=== PATIENT | female | born 1970 | race Caucasian/White ===

== ENCOUNTER → 2020-08-27 10:44 | Outpatient (CLI) | payer OTHER, SELFPAY ==
--- NOTE | 2020-08-27 10:46 | DI.RAD.S_ITS ---
PROCEDURE: XR FOOT LT MIN 3V INDICATIONS: Persistent and progressive lateral left foot pain TECHNIQUE: 3 views of the foot were acquired. COMPARISON: None. FINDINGS: Bones: No fractures or dislocations. No suspicious bony lesions. Soft tissues: No tibiotalar joint effusion. Achilles tendon appears normal. IMPRESSION: No osseous lesion. If symptoms and/or clinical suspicion for pathology persists, further assessment with advanced imaging (e.g. CT, MRI or bone scan) should be considered. Dictated by: Zeinab Medellin MD, PhD on 08/27/2020 at 15:10 Approved by: Zeinab Medellin MD, PhD on 08/27/2020 at 15:11
[2020-08-27 11:27] LABS: Add Manual Diff / Slide Review NO; Basophils Absolute Auto 0 /uL (0-100); Basophils Percent Auto 0.2 % (0-2); Eosinophils Absolute Auto 100 /uL (0-450); Eosinophils Percent Auto 0.9 % (2-4); Hematocrit 38.4 % (36-46); Hemoglobin 12.9 g/dL (12.0-16.0); Lymphocytes Absolute Auto 1100 /uL (1100-4500); Lymphocytes Percent Auto 16.3 % (25-40); Mean Corpuscular HGB Conc 33.6 % (30-36); Mean Corpuscular Hemoglobin 32.7 PG (26-34); Mean Corpuscular Volume 97.3 fL (80-100); Monocytes Absolute Auto 600 /uL (0-900); Monocytes Percent Auto 9.6 % (3-14); Neutrophils Absolute Auto 4800 /uL (1500-7000); Platelet Count 330 X10^3/uL (150-400); Red Blood Cell Count 3.94 X10^6/uL (4.0-5.2); Red Cell Distribution Width 13.5 % (11.6-14.8); White Blood Cell Count 6.6 X10^3/uL (4.5-11.0)
[2020-08-27 12:18] LABS: Alanine Aminotransferase 37 IU/L (<35); Albumin 4.7 g/dL (3.5-5.0); Albumin Globulin Ratio 1.6 (1.0-2.8); Alkaline Phosphatase 49 U/L (38-126); Aspartate Aminotransferase 38 IU/L (14-36); BUN Creatinine Ratio 20.8 (6-22); Bilirubin Total 0.7 mg/dL (0.2-1.3); Blood Urea Nitrogen 15 mg/dL (7-17); Calcium 9.8 mg/dL (8.4-10.2); Carbon Dioxide 30 mmol/L (22-32); Chloride 103 mmol/L (98-107); Cholesterol 287 mg/dL (140-199); Estimated Glomerular Filt Rate > 60.0 mL/min (>60); Glucose 92 mg/dL (70-100); HDL Cholesterol 89 mg/dL (40-60); HEMOLYSIS < 15 (0-50); LDL Cholesterol Calculated 186 mg/dL (<100); Potassium 3.9 mmol/L (3.4-5.1); Sodium 139 mmol/L (137-145); Total Protein 7.7 g/dL (6.3-8.2); Triglycerides 60 mg/dL (35-150)
[2020-08-27 12:49] LABS: TSH w/ Reflex to FT4 0.99 uIU/mL (0.47-4.68)
== END ==
PROVIDERS: PCP Family Medicine; Referring Provider Family Medicine; Visit Provider Family Medicine
DX: Z00.00 Encounter for general adult medical examination without abnormal findings (principal); M77.42 Metatarsalgia, left foot
CPT/HCPCS: 36415; 73630; 80053; 80061; 84443; 85025

== ENCOUNTER → 2020-10-13 09:37 | Outpatient (CLI) | payer OTHER, SELFPAY ==
[2020-10-13 10:22] LABS: COVID19 -Nasal RAPID Negative (Negative)
== END ==
PROVIDERS: PCP Family Medicine; Visit Provider Surgery
DX: Z01.812 Encounter for preprocedural laboratory examination (principal); Z20.822 Contact with and (suspected) exposure to COVID-19
CPT/HCPCS: 87635; C9803

== ENCOUNTER 2020-10-14 09:04 | Day surgery (SDC) | payer OTHER, SELFPAY ==
[2020-10-14 09:35] VITALS: BP 105/75; PULSE 79; RESP 18; TEMP 36.4; O2SAT 98; BMI 22.7
[2020-10-14] MEDS: LACTATED RINGERS 1,000 ML 100 ML IV (09:54)
--- NOTE | 2020-10-14 10:15 | PM.HP.1 ---
History of Present Illness History of Present Illness Date Patient Seen: 10/14/20 Time Patient Seen: 10:25 Chief complaint: SCREENING COLONOSCOPY Narrative: No family history for colon cancer. Son has Crohn's diagnosed at age 2. she has not symptoms. Previous colonoscopy in her 30's to rule out inflammatory bowel dz Patient History Medical History Chicken pox (~1975) Family history of breast cancer Foot pain (~2017) Gastric ulcer (~1988) Hemorrhoid (~1997) Hip dysplasia (~1979) History of melanoma (~2018) History of menopause (~2012) Hyperlipidemia Irregular menstrual cycle (~1984) Metatarsalgia, left foot Migraines (~1984) Mononucleosis (~1979) Osteoarthritis (~2009) Ovarian cyst Ovarian torsion (~1995) Pneumonia (~1980) Preventative health care Vision disorder Surgical History Anesthesia History of section (~1996) History of hip surgery (~2009) History of oophorectomy History of right knee surgery (~2019) History of tonsillectomy and adenoidectomy (~1977) Status post rotator cuff repair (~2016) Family & Social History Family History Father Alzheimer's disease History of bipolar disorder CLL (chronic lymphocytic leukemia) History of heart disease Hyperlipidemia Hypertension Mental health problem History of heart attack Mother Osteoarthritis Breast cancer History of heart disease Hyperlipidemia Grandfather Alcoholic Grandmother Stroke Dementia Grandfather Cirrhosis Alcoholic Grandmother Hypertension Stroke Family/Other Mental health problem Social History: household members spouse,family Tobacco & Substance use: Smoking Status Never smoker alcohol intake current alcohol intake frequency 3 or more drinks per day Substance Use Type does not use Meds Home Medications and Allergies Home Medications Medication Instructions Recorded Confirmed Type doxylamine succinate 12.5 mg PO BEDTIME 10/14/20 10/14/20 History magnesium citrate 125 mg PO BEDTIME 10/14/20 10/14/20 History melatonin 5 mg PO BEDTIME PRN 10/14/20 10/14/20 History Allergies Allergy/AdvReac Type Severity Reaction Status Date / Time No Known Drug Allergies Allergy Verified 10/11/20 13:07 Exam Vital Signs (past 8 hours): - 10/14/20 09:35 Temperature 97.6 F Pulse Rate 79 Respiratory Rate 18 Blood Pressure 105/75 Pulse Oximetry 98 Oxygen Delivery Method Room Air Const General: cooperative and healthy appearing Nutritional Appearance: average body habitus Orientation: alert and oriented x3 HENMT Head: normal to inspection Ears: hearing grossly normal bilaterally Nose: external nose normal Eyes Sclera: sclerae normal Neck Neck: trachea midline and supple Chest Chest: normal inspection of the chest Cardio Rate: regular rate Rhythm: regular rhythm GI Inspection: normal to inspection Palpation: soft Skin General: no rashes or lesions noted Hair: normal Nails: normal Neuro General: patient alert and patient oriented x3 Extrem General: normal to inspection and full ROM Psych Appearance: grossly normal Thought Content: normal Judgment: judgment good Assessment & Plan Assessment & Plan narrative: colon cancer screening using colonoscopy and moderate sedation COVID-19 COVID-19 status: Negative
--- NOTE | 2020-10-14 10:50 | PM.OP.ENDO ---
Operative Date/Time/Diagnoses Date of procedure: 10/14/20 Time of procedure: 10:50 Pre-op diagnosis: screening for colonoscopy Post-op diagnosis: same Procedure & Clinicians Study performed: colonoscopy with moderate sedatoin Same procedure as scheduled: Yes Indications: colon cancer screening Surgeon: Shelly Hilton Procedure Notes SCOAP/Timeout: done Procedure in detail: Preop diagnosis: Colon cancer screening Postop diagnosis: Same Operative procedure: Colonoscopy with moderate sedation Surgeon: Sunitha Hilton MD Anesthetic: Fentanyl and Versed, see nursing notes for dosing Findings: Normal colonoscopy. No polyps, no diverticulitis Procedure: Patient placed in the lateral position. Rectal exam performed showing normal tone no masses. She does have a large anal skin tag. Scope inserted into the rectum and advanced to the ileocecal valve with minimal difficulty. Insufflation and extraction of the scope and the above findings. Retroflex was included in the rectal exam. Impression: Normal colonoscopy, no polyps, no diverticulosis. Plan: Repeat colonoscopy in 10 years unless change in clinical condition or family history. Scope withdrawal time: 6 min Sedation minutes: 18 Specimen(s): none sent Complications: none Impression: normal colon. no polyps, no diverticula Post-procedure Recommendations: Colonscopy in 10 years and Continue medication(s) Plan for aftercare: home Follow up: as needed Disposition: PACU
[2020-10-14] MEDS: fentaNYL 250 MCG/5 ML INJ IV (10:52)
[2020-10-14] MEDS: MIDAZOLAM 5 MG/5 ML VIAL IV (10:52)
[2020-10-14 10:55] VITALS: BP 90/60; PULSE 74; RESP 94; TEMP 36.4; O2SAT 12
[2020-10-14 11:00] VITALS: BP 94/70; PULSE 67; RESP 12; O2SAT 95
[2020-10-14 11:05] VITALS: BP 95/69; PULSE 63; RESP 12; O2SAT 99
[2020-10-14 11:10] VITALS: BP 94/69; PULSE 69; RESP 12; TEMP 36.3; O2SAT 99
[2020-10-14 11:30] VITALS: BP 97/68; PULSE 82; RESP 14; TEMP 36.1; O2SAT 99
== END 2020-10-14 11:35 | disposition home or self-care (01) ==
PROVIDERS: PCP Family Medicine; Referring Provider Family Medicine; Visit Provider Surgery
PROC: 0DJD8ZZ Inspection of Lower Intestinal Tract, Via Natural or Artificial Opening Endoscopic (ICD-10-PCS; CPT 45378; principal; 2020-10-14 10:15)
DX: Z12.11 Encounter for screening for malignant neoplasm of colon (principal)
CPT/HCPCS: 45378; 99152; J2250; J3010

== ENCOUNTER → 2021-02-03 07:19 | Outpatient (CLI) | payer OTHER, SELFPAY ==
[2021-02-03 08:48] LABS: Alanine Aminotransferase 14 IU/L (<35); Albumin 4.4 g/dL (3.5-5.0); Albumin Globulin Ratio 1.8 (1.0-2.8); Alkaline Phosphatase 49 U/L (38-126); Aspartate Aminotransferase 30 IU/L (14-36); BUN Creatinine Ratio 23.2 (6-22); Bilirubin Total 0.4 mg/dL (0.2-1.3); Blood Urea Nitrogen 16 mg/dL (7-17); Calcium 9.2 mg/dL (8.4-10.2); Carbon Dioxide 26 mmol/L (22-32); Chloride 107 mmol/L (98-107); Cholesterol 214 mg/dL (140-199); Estimated Glomerular Filt Rate > 60.0 mL/min (>60); Globulin 2.5 g/dL (1.7-4.1); Glucose 84 mg/dL (70-100); HDL Cholesterol 72 mg/dL (40-60); HEMOLYSIS < 15 (0-50); LDL Cholesterol Calculated 129 mg/dL (<100); Potassium 4.3 mmol/L (3.4-5.1); Sodium 141 mmol/L (137-145); Total Protein 6.9 g/dL (6.3-8.2); Triglycerides 63 mg/dL (35-150)
== END ==
PROVIDERS: PCP Family Medicine; Referring Provider Family Medicine; Visit Provider Family Medicine
DX: E78.01 Familial hypercholesterolemia (principal)
CPT/HCPCS: 36415; 80053; 80061

== ENCOUNTER → 2021-04-07 13:58 | Outpatient (CLI) | payer OTHER, SELFPAY ==
[2021-04-07 14:49] LABS: COVID19 -Nasal RAPID Negative (Negative)
== END ==
PROVIDERS: PCP Family Medicine; Visit Provider Physician Assistant
DX: Z20.822 Contact with and (suspected) exposure to COVID-19 (principal)
CPT/HCPCS: 87635

== ENCOUNTER → 2021-04-07 14:51 | Outpatient (CLI) | payer OTHER, SELFPAY ==
--- NOTE | 2021-04-07 14:52 | DI.RAD.S_ITS ---
PROCEDURE: XR HAND RT MIN 3V INDICATIONS: recent pinky and ring finger injury TECHNIQUE: 3 views of the hand(s) acquired. COMPARISON: None. FINDINGS: Bones: No fractures or dislocations. Carpal bones are normally aligned. No suspicious bony lesions. Soft tissues: No suspicious soft tissue calcifications. IMPRESSION: No fracture or dislocation. If clinical symptoms persist or clinical suspicion for pathology is high, a repeat examination in 7-10 days is suggested for further evaluation. Dictated by: Ekaterina Morgan M.D. on 04/07/2021 at 16:08 Approved by: Ekaterina Morgan M.D. on 04/07/2021 at 16:10
== END ==
PROVIDERS: PCP Family Medicine; Referring Provider Physician Assistant; Visit Provider Physician Assistant
DX: S69.91XA Unspecified injury of right wrist, hand and finger(s), initial encounter (principal); Z20.822 Contact with and (suspected) exposure to COVID-19; X58.XXXA Exposure to other specified factors, initial encounter
CPT/HCPCS: 73130; 87635

== ENCOUNTER → 2022-01-12 08:19 | Outpatient (CLI) | payer BC, SELFPAY ==
[2022-01-12 11:40] LABS: Appearance Urine UA SL CLOUDY; Bilirubin Urine UA NEGATIVE (NEGATIVE); Color Urine UA YELLOW; Glucose Urine UA NEGATIVE (Negative); Ketones Urine UA NEGATIVE (NEGATIVE); Leukocyte Esterase Urine UA 1+ (NEGATIVE); Nitrite Urine UA POSITIVE (Negative); Occult Blood Urine UA 3+ (Negative); Protein Urine UA 1+ (Negative); Urobilinogen Urine UA 0.2 E.U./dL (0.2)
[2022-01-12 12:09] LABS: Bacteria Urine Many (>30); Culture Indicated Urine Specimen Cultured; Mucus Urine 1+ (Negative); RBC Urine 1-5/HPF (0-5/HPF); Squamous Epithelial Cell Urine 0-1 /HPF (0-5/HPF); WBC Urine 30-100/HPF (0-5/HPF)
== END ==
PROVIDERS: PCP Family Medicine; Referring Provider Family Medicine; Visit Provider Family Medicine
DX: R39.15 Urgency of urination (principal); R82.90 Unspecified abnormal findings in urine
CPT/HCPCS: 81001; 87077; 87086; 87186

== ENCOUNTER → 2022-03-13 11:06 | Outpatient (CLI) | payer BC, SELFPAY ==
--- NOTE | 2022-03-13 | DI.MG.S_ITS ---
BILATERAL DIGITAL SCREENING MAMMOGRAM 3D/2D WITH CAD WITH AUGMENTATION: 03/13/2022 CLINICAL: Patient presents for routine screening. S/P bilateral augmentation. Family history of breast cancer. Comparison is made to exam dated: 04/07/2019 mammogram - Outside facility. There are scattered areas of fibroglandular density in both breasts (category b / 25%-50% glandular tissue). Current study was also evaluated with a Computer Aided Detection (CAD) system. Bilateral breast implants are stable and intact. No significant masses, calcifications, or other findings are seen in either breast. There has been no significant interval change. IMPRESSION: NEGATIVE There is no mammographic evidence of malignancy. A 1 year screening mammogram is recommended. Based on the Tyrer Cuzick model (a risk assessment model) the patient's lifetime risk is 6.7% and her 10 year risk is 1.7%. According to the ACR, ACS, and NCCN guidelines, an annual breast MRI exam along with mammogram is recommended if the patient's lifetime risk is 20% or greater. This exam was interpreted at Station ID: [id number]. NOTE: For mammograms, a report in lay terms will be sent to the patient. Approximately 15% of breast malignancies will not be visualized mammographically. In the management of a palpable breast mass, a negative mammogram must not discourage biopsy of a clinically suspicious lesion. Electronically Signed By: Megha peñaloza/renita:03/13/2022 14:35:45 letter sent: Normal Exam ACR BI-RADS Category 1: Negative 3341F
== END ==
PROVIDERS: PCP Family Medicine; Referring Provider Family Medicine; Visit Provider Family Medicine
DX: Z12.31 Encounter for screening mammogram for malignant neoplasm of breast (principal); Z80.3 Family history of malignant neoplasm of breast; Z98.82 Breast implant status
CPT/HCPCS: 77063; 77067

== ENCOUNTER → 2022-10-18 07:56 | Outpatient (CLI) | payer BC, SELFPAY ==
--- NOTE | 2022-10-18 07:58 | DI.RAD.S_ITS ---
PROCEDURE: XR WRIST LT MIN 3V INDICATIONS: Wrist pain TECHNIQUE: 4 views of the wrist were acquired. COMPARISON: None. FINDINGS: Bones: No acute fractures or dislocations. No suspicious bony lesions. Moderate joint space narrowing is seen at the triscaphe joint and there are mild degenerative changes of the 1st carpometacarpal joint. Mild degenerative changes of the 1st metacarpophalangeal joint. Scaphoid view: Intact scaphoid. Soft tissues: No suspicious soft tissue calcifications. IMPRESSION: Moderate triscaphe and mild 1st carpometacarpal osteoarthrosis. Approved by: Mello Vanegas M.D. on 10/18/2022 at 10:34
== END ==
PROVIDERS: PCP Family Medicine; Referring Provider Nurse Practitioner Family; Visit Provider Nurse Practitioner Family
DX: M19.032 Primary osteoarthritis, left wrist (principal); M18.12 Unilateral primary osteoarthritis of first carpometacarpal joint, left hand; M25.532 Pain in left wrist
CPT/HCPCS: 73110

== ENCOUNTER → 2022-10-20 10:34 | Outpatient (CLI) | payer BC, SELFPAY ==
--- NOTE | 2022-10-20 10:35 | DI.RAD.S_ITS ---
PROCEDURE: XR WRIST LT MIN 3V INDICATIONS: Scaphoid tenderness TECHNIQUE: 4 views of the wrist were acquired. COMPARISON: [facility], CR, XR WRIST LT MIN 3V, 10/18/2022, 7:54. FINDINGS: Bones: No fractures or dislocations. No suspicious bony lesions. Scaphoid view: No acute fracture identified. Soft tissues: No suspicious soft tissue calcifications. IMPRESSION: No acute fracture identified. If symptoms persist, follow-up radiographs and/or CT or MRI may be helpful for further evaluation. Dictated by: Mello Solo M.D. on 10/20/2022 at 16:32 Approved by: Mello Solo M.D. on 10/20/2022 at 16:36
== END ==
PROVIDERS: PCP Family Medicine; Referring Provider Family Medicine; Visit Provider Family Medicine
DX: M25.532 Pain in left wrist (principal)
CPT/HCPCS: 73110

== ENCOUNTER → 2022-10-26 13:14 | Outpatient (CLI) | payer BC, SELFPAY ==
--- NOTE | 2022-10-26 13:15 | DI.MRI.S_ITS ---
PROCEDURE: MR WRIST LT WO CON INDICATIONS: wrist pain. ? scaphoid fx, ligamentous injury TECHNIQUE: Noncontrast coronal proton density fast spin echo and T2 fast spin echo with fat saturation; coronal 3-D gradient echo, axial T1 spin echo and T2 fast spin echo with fat saturation, sagittal T1 spin echo through the wrist. COMPARISON: None. FINDINGS: Image quality: Excellent. Bones and cartilage: The carpal bones are normally aligned. There is extensive marrow edema involving mid to distal portion of scaphoid with subtle linear hypointense signal within the area of edema concerning for subtle nondisplaced/incomplete scaphoid waist fracture. No other area of abnormal marrow signal. No evidence for avascular necrosis. Overlying cartilage surfaces appear normal. Carpal ligaments: The scapholunate and lunotriquetral ligaments appear intact. In the absence of intra-articular contrast, the extrinsic carpal ligaments are not well identified. On sagittal images, the pisohamate ligament appears intact. Triangular fibrocartilage complex: Signal abnormality within triangular fibrocartilage near its radial insertion is seen. The adjacent meniscal homolog appears normal in the absence of intra-articular contrast. The extensor carpi ulnaris tendon is normal in location and morphology. Tendons and soft tissues: The carpal tunnel structures appear normal, including the median nerve. The ulnar nerve appears normal within Guyon's canal. Thickened adductor pollicis longus tendon at the level of radial styloid is seen with mild surrounding edema. Mildly thickened adjacent extensor pollicis brevis tendon is also noted at this level. Rest of the extensor tendon compartments demonstrate normal morphology, without pathologic tendon sheath fluid. No soft tissue ganglion cysts. IMPRESSION: 1. Bony contusion versus nondisplaced/incomplete fracture through scaphoid waist without signs of avascular necrosis. 2. Suggestion of triangular fibrocartilage tear near its radial insertion. 3. Intrinsic and extrinsic wrist ligaments are intact. 4. Tendinosis and low-grade intrasubstance partial-thickness tear involving adductor pollicis longus and extensor pollicis brevis tendons at the level of radial styloid. Dictated by: Pako Davis M.D. on 10/27/2022 at 9:06 Approved by: Pako Davis M.D. on 10/27/2022 at 9:30
== END ==
PROVIDERS: PCP Family Medicine; Referring Provider Family Medicine; Visit Provider Family Medicine
DX: M25.532 Pain in left wrist (principal)
CPT/HCPCS: 73221

== ENCOUNTER → 2023-05-23 17:02 | Outpatient (CLI) | payer BC, SELFPAY ==
--- NOTE | 2023-05-23 | DI.MG.S_ITS ---
BILATERAL DIGITAL SCREENING MAMMOGRAM 3D/2D WITH CAD WITH AUGMENTATION: 05/23/2023 CLINICAL: Routine screening. Family history of breast cancer. Comparison is made to exams dated: 03/13/2022 mammogram - [facility] and 04/07/2019 mammogram - Outside facility. There are scattered areas of fibroglandular density in both breasts (category b / 25%-50% glandular tissue). Current study was also evaluated with a Computer Aided Detection (CAD) system. Bilateral breast implants are stable. No significant masses, calcifications, or other findings are seen in either breast. There has been no significant interval change. IMPRESSION: BENIGN There is no mammographic evidence of malignancy. A 1 year screening mammogram is recommended. Based on the Tyrer Cuzick model (a risk assessment model) the patient's lifetime risk is 6.7% and her 10 year risk is 1.8%. According to the ACR, ACS, and NCCN guidelines, an annual breast MRI exam along with mammogram is recommended if the patient's lifetime risk is 20% or greater. This exam was interpreted at Station ID: [id number]. NOTE: For mammograms, a report in lay terms will be sent to the patient. Approximately 15% of breast malignancies will not be visualized mammographically. In the management of a palpable breast mass, a negative mammogram must not discourage biopsy of a clinically suspicious lesion. Electronically Signed By: Zhang coker/renita:05/24/2023 08:37:27 letter sent: Normal Exam ACR BI-RADS Category 2: Benign Finding(s) 3342F
== END ==
PROVIDERS: PCP Family Medicine; Referring Provider Family Medicine; Visit Provider Family Medicine
DX: Z12.31 Encounter for screening mammogram for malignant neoplasm of breast (principal); Z80.3 Family history of malignant neoplasm of breast
CPT/HCPCS: 77063; 77067

== ENCOUNTER 2024-02-11 17:22 | Inpatient (IN) | payer OTHER, SELFPAY ==
[2024-02-11] VITALS (17 sets, daily range): BP systolic 109–138; BP diastolic 63–87; PULSE 81–96; RESP 19–40; TEMP 36.8–36.9; O2SAT 94–100; BMI 23.1
[2024-02-11] MEDS: KETOROLAC 30 MG/ML VIAL 15 MG IV (17:42)
[2024-02-11] MEDS: HYDROMORPHONE 1 MG INJ IV (17:52)
[2024-02-11 17:55] LABS: Add Manual Diff / Slide Review NO; Basophils Absolute Auto 0 /uL (0-100); Basophils Percent Auto 0.3 % (0-2); Eosinophils Absolute Auto 0 /uL (0-450); Eosinophils Percent Auto 0.4 % (2-4); Hematocrit 39.5 % (36-46); Hemoglobin 13.3 g/dL (12.0-16.0); Lymphocytes Absolute Auto 1300 /uL (1100-4500); Lymphocytes Percent Auto 11.3 % (25-40); Mean Corpuscular HGB Conc 33.8 % (30-36); Mean Corpuscular Volume 94.9 fL (80-100); Monocytes Absolute Auto 800 /uL (0-900); Monocytes Percent Auto 6.7 % (3-14); Neutrophils Absolute Auto 9400 /uL (1500-7000); Neutrophils Percent Auto 81.3 % (50-75); Platelet Count 406 X10^3/uL (150-400); Red Blood Cell Count 4.16 X10^6/uL (4.0-5.2); Red Cell Distribution Width 13.1 % (11.6-14.8); White Blood Cell Count 11.6 X10^3/uL (4.5-11.0)
--- NOTE | 2024-02-11 18:08 | ED_ITS ---
HPI - Back Pain/Injury General Chief Complaint: Back Pain/Injury Stated Complaint: left leg px Time Seen by Provider: 02/11/24 17:51 Source: patient History of Present Illness HPI Narrative: 53-year-old female with no significant past medical history presents for left- sided flank pain. Patient states that 3 days ago she began to feel burning with urination concerning for urinary tract infection. She was taking [id number] cranberry supplements and it seemed like her symptoms were improving, however this afternoon on a drive back from [place] she began to notice growing left-sided flank pain. She initially presented to the urgent care, but she had abrupt worsening of her flank pain and she was directed to the emergency department for evaluation. Patient reports previous history of ovarian torsion in cysts, however her ovaries are removed and this feels much different. 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 UTI (urinary tract infection) Hyperlipidemia Vision disorder Migraines (~1984) Foot pain (~2017) Mononucleosis (~1979) Chicken pox (~1975) Pneumonia (~1980) Ovarian torsion (~1995) Ovarian cyst Irregular menstrual cycle (~1984) History of menopause (~2012) Hemorrhoid (~1997) Gastric ulcer (~1988) Hip dysplasia (~1979) Osteoarthritis (~2009) History of melanoma (~2018) Family history of breast cancer Metatarsalgia, left foot Preventative health care Surgical History Anesthesia History of tonsillectomy and adenoidectomy (~1977) History of section (~1996) History of hip surgery (~2009) History of right knee surgery (~2019) Status post rotator cuff repair (~2016) History of oophorectomy Family History Father Alzheimer's disease History of bipolar disorder CLL (chronic lymphocytic leukemia) History of heart disease Hyperlipidemia Hypertension Mental health problem History of heart attack Mother Osteoarthritis Breast cancer History of heart disease Hyperlipidemia Grandfather Alcoholic Grandmother Stroke Dementia Grandfather Cirrhosis Alcoholic Grandmother Hypertension Stroke Family/Other Mental health problem Social History household members: spouse and family Smoking Status: Never smoker alcohol intake: current substance use type: does not use Smoking Status: Never smoker alcohol intake frequency: 0-2 drinks per day Alcohol type: wine Substance Use Type: does not use Exam Initial Vital Signs Initial Vital Signs: Vital Signs Temperature 98.2 F 02/11/24 17:25 Pulse Rate 94 H 02/11/24 17:25 Respiratory Rate 26 H 02/11/24 17:25 Blood Pressure 109/72 02/11/24 17:25 Pulse Oximetry 98 02/11/24 17:25 Oxygen Delivery Method Room Air 02/11/24 17:25 Const: Awake, alert, no acute distress, nontoxic appearing, laying on left side in ED stretcher Cardiac: regular rate, regular rhythm RESP: unlabored, clear bilaterally, no wheezing GI: Soft, nontender, nondistended MSK: no midline tenderness, no cva tenderness bilaterally Skin: Warm, Dry, intact, no rashes Neuro: AO x3, CN II-XII grossly intact, moves all extremities Course Orders Ordered: ED Orders 02/11/24 17:40 Basic Metabolic Panel Stat Complete Blood Count AUTO DIFF Stat 02/11/24 18:09 CT kidney ureter bladder (KUB) Stat 02/11/24 18:30 Urine Culture Stat Urine Microscopic Stat Discontinued Medications Hydromorphone HCl (Hydromorphone 1 Mg Inj) 1 mg IV NOW ONE Stop: 02/11/24 17:33 Last Admin: 02/11/24 17:52 Dose: 1 mg Documented By: GENNA Hydromorphone HCl (Hydromorphone 0.5 Mg Inj) 0.5 mg IV NOW ONE Stop: 02/11/24 19:37 Last Admin: 02/11/24 19:44 Dose: 0.5 mg Documented By: JOYA Hydromorphone HCl (Hydromorphone 0.5 Mg Inj) 0.5 mg IV NOW ONE Stop: 02/11/24 22:23 Last Admin: 02/11/24 22:44 Dose: 0.5 mg Documented By: Sodium Chloride (Normal Saline 0.9%) 1,000 mls @ 1,000 mls/hr IV BOLUS ONE Stop: 02/11/24 19:21 Last Infusion: 02/11/24 19:54 Dose: Infused Documented By: Admin: 02/11/24 18:48 Dose: 1,000 mls/hr Documented By: GENNA Ceftriaxone Sodium 2,000 mg/ (Sodium Chloride) 100 mls @ 200 mls/hr IV NOW ONE Stop: 02/11/24 19:06 Last Infusion: 02/11/24 19:54 Dose: Infused Documented By: Admin: 02/11/24 19:17 Dose: 200 mls/hr Documented By: Acetaminophen (Ofirmev) 1,000 mg in 100 mls @ 400 mls/hr IV NOW ONE Stop: 02/11/24 21:14 Last Infusion: 02/11/24 21:41 Dose: Infused Documented By: Admin: 02/11/24 21:09 Dose: 400 mls/hr Documented By: Lidocaine HCl 5 ml/ Sodium (Chloride) 55 mls @ 330 mls/hr IV NOW ONE Stop: 02/11/24 21:01 Last Infusion: 02/11/24 21:23 Dose: Infused Documented By: Admin: 02/11/24 21:06 Dose: 330 mls/hr Documented By: Ketorolac Tromethamine (Ketorolac 30 Mg/Ml Vial) 15 mg IV NOW ONE Stop: 02/11/24 17:33 Last Admin: 02/11/24 17:42 Dose: 15 mg Documented By: JOYA Vital Signs Vital signs: Vital Signs - 8 hr 02/11/24 17:25 02/11/24 18:04 02/11/24 18:05 Temperature 98.2 F Pulse Rate 94 H 83 Respiratory Rate 26 H Blood Pressure 109/72 113/67 Pulse Oximetry 98 97 Oxygen Delivery Method Room Air 02/11/24 18:05 02/11/24 18:28 02/11/24 18:28 Temperature Pulse Rate 82 83 Respiratory Rate Blood Pressure 129/68 Pulse Oximetry 98 96 Oxygen Delivery Method 02/11/24 18:30 02/11/24 18:30 02/11/24 19:00 Temperature Pulse Rate 86 Respiratory Rate Blood Pressure 130/73 134/82 Pulse Oximetry 95 Oxygen Delivery Method 02/11/24 19:00 02/11/24 19:30 02/11/24 19:30 Temperature Pulse Rate 81 85 Respiratory Rate Blood Pressure 136/79 Pulse Oximetry 99 99 Oxygen Delivery Method 02/11/24 20:00 02/11/24 20:00 02/11/24 20:30 Temperature Pulse Rate 82 Respiratory Rate Blood Pressure 135/74 Pulse Oximetry 98 99 Oxygen Delivery Method 02/11/24 20:34 02/11/24 20:34 02/11/24 21:00 Temperature Pulse Rate 85 88 Respiratory Rate Blood Pressure 138/74 Pulse Oximetry 100 94 Oxygen Delivery Method 02/11/24 21:01 02/11/24 21:01 02/11/24 21:30 Temperature Pulse Rate 86 96 H Respiratory Rate 40 H Blood Pressure 130/63 Pulse Oximetry 99 96 Oxygen Delivery Method 02/11/24 21:31 02/11/24 21:31 02/11/24 22:00 Temperature Pulse Rate 96 H 92 H Respiratory Rate 33 H 31 H Blood Pressure 128/79 Pulse Oximetry 98 94 Oxygen Delivery Method MDM - Back Pain/Injury Differential Diagnosis Differential diagnosis: Likely sciatica, renal colic and pyelonephritis Lab Data 02/11/24 17:40 02/11/24 17:40 Labs: Lab Results 02/11/24 02/11/24 Range/Units 17:40 18:30 WBC 11.6 H (4.5-11.0) X10^3/uL RBC 4.16 (4.0-5.2) X10^6/uL Hgb 13.3 (12.0-16.0) g/dL Hct 39.5 (36-46) % MCV 94.9 (80-100) fL MCH 32.0 (26-34) PG MCHC 33.8 (30-36) % RDW 13.1 (11.6-14.8) % Plt Count 406 H (150-400) X10^3/uL Neut % (Auto) 81.3 H (50-75) % Lymph % (Auto) 11.3 L (25-40) % [place] % (Auto) 6.7 (3-14) % Eos % (Auto) 0.4 L (2-4) % Baso % (Auto) 0.3 (0-2) % Neut # (Auto) 9400 H (2661-3040) /uL Lymph # (Auto) 1300 (5653-1829) /uL [place] # (Auto) 800 (0-900) /uL Eos # (Auto) 0 (0-450) /uL Baso # (Auto) 0 (0-100) /uL Sodium 139 (137-145) mmol/L Potassium 3.1 L (3.4-5.1) mmol/L Chloride 101 (98-107) mmol/L Carbon Dioxide 23 (22-32) mmol/L BUN 21 H (7-17) mg/dL Creatinine 1.12 H (0.52-1.04) mg/dL Estimated GFR 58 L (>60) mL/min BUN/Creatinine Ratio 18.8 (6-22) Glucose 97 (70-100) mg/dL Calcium 9.6 (8.4-10.2) mg/dL Urine RBC 1-5/hpf (0-5/HPF) Urine WBC 30-100/hpf H (0-5/HPF) Ur Squamous Epith Cells 0-1 /hpf (0-5/HPF) Urine Bacteria Many (>30) H (None) WBC Casts 1-5/lpf H (None) Ur Culture Indicated? Specimen cultured Vol Urine Centrifuged 10ml (spun) Urine Dip Bedside Urine Glucose Negative Bedside Urine Bilirubin - Negative Bedside Urine Ketone +/- 5 Urine Specific [place] 1.015 Bedside Urine Occult Blood +/- Bedside Urine pH 8.0 Bedside Urine Protein + 30 Bedside Urine Urobilinogen - Negative Bedside Urine Nitrite - Negative Bedside Urine Leukocytes + [address] scan - abdomen/pelvis: Radiologist's Impression: PROCEDURE: CT KIDNEY URETER BLADDER (KUB) INDICATIONS: L FLANK PAIN, CONCERN STONES TECHNIQUE: Axial sections were acquired from the lung bases to the pubic symphysis. Coronal and sagittal reformats were performed. For radiation dose reduction, the following was used: automated exposure control, adjustment of mA and/or kV according to patient size. COMPARISON: None. FINDINGS: Image quality: Diagnostic. Lower Chest: No significant findings. Bilateral breast implants are intact. URINARY: Right Kidney: No stones or hydronephrosis. Right Ureter: No hydroureter. Left Kidney: Severe left-sided hydronephrosis is seen extending to the level of left UPJ. Mild left perinephric fat stranding is also noted. Left Ureter: No hydroureter or obstructing stone is seen. Bladder: Normal wall thickness. No stones. ABDOMEN: Liver: No contour-deforming solid mass. Gallbladder: No radiopaque gallstones or wall thickening. Biliary ducts: No biliary dilation. Pancreas: No ductal dilation. Spleen: Size is within normal limits. Adrenal Glands: No adrenal nodules. Stomach and Bowel: Normal colonic caliber, without significant wall thickening. No abscess collection. Peritoneum: No abnormal intraperitoneal fluid. No free air. Ventral Wall: No hernia. Abdominal Nodes: No enlarged retroperitoneal or mesenteric lymph nodes. Vessels: Aorta and inferior vena cava are normal in size. PELVIS: Pelvic Organs: Unremarkable. Pelvic Nodes: Unremarkable. Miscellaneous: No inguinal hernias are seen. Bones: No aggressive appearing bony lesions. IMPRESSION: 1. Moderate to severe left-sided hydronephrosis extending to the level of left UPJ without calcified stones seen. Mild left perinephric fat stranding. Normal left ureteral caliber without obstructing ureteral stones. 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 2. No right-sided hydronephrosis or renal stones. Normal appearing urinary bladder. 3. No bowel obstruction or abnormal bowel wall thickening. No free fluid or free air. Dictated by: Pako Davis M.D. on 02/11/2024 at 19:42 Approved by: Pako Davis M.D. on 02/11/2024 at 19:47 MDM Narrative Medical decision making narrative: Nontoxic appearing patient with left-sided flank pain, sudden and severe in onset. Pain not controlled with Toradol, IV Dilaudid ordered. Laboratory work and CT imaging ordered for assessment. Laboratory work reviewed, WBC count 11.6, hemoglobin 13.3, platelets 406, sodium 139, potassium 3.1, creatinine 1.12. Urinalysis positive for nitrites, leukocyte esterase, many WBCs, many bacteria. Rocephin ordered for coverage. CT shows left-sided moderate to severe hydronephrosis. No calcified stone seen, concerning for stricture. Case discussed with Dr. Lopez of Urology. I verbally relayed the CT impression to him. Urology states that this is likely a chronic finding and not the source of pain, the pain is most likely from the pyelonephritis. Without surrounding retroperitoneal adenopathy this is likely been present for quite some time. Can be followed up outpatient unless patient has intractable pain, no urgent or emergent interventions required from urology standpoint at this time. Unfortunately despite numerous doses of pain medication patient continues to complain of severe pain in her left side. Plan to admit for intractable pain. Notify Dr. Lopez of urology, who will see patient in AM. No planned intervention at this time, but requested NPO at midnight in case anything changes. Discharge Plan Departure Patient Disposition: Admitted as Observation Clinical Impression: Pyelonephritis, Intractable pain Hydronephrosis Qualifiers: Hydronephrosis type: unspecified Qualified Code(s): N13.30 - Unspecified hydronephrosis Admit Date/Time: 02/11/24 22:14 Admit Provider: John Emmanuel
[2024-02-11 18:09] LABS: BUN Creatinine Ratio 18.8 (6-22); Blood Urea Nitrogen 21 mg/dL (7-17); Calcium 9.6 mg/dL (8.4-10.2); Carbon Dioxide 23 mmol/L (22-32); Chloride 101 mmol/L (98-107); Estimated Glomerular Filt Rate 58 mL/min (>60); Glucose 97 mg/dL (70-100); HEMOLYSIS < 15 (0-50); Potassium 3.1 mmol/L (3.4-5.1); Sodium 139 mmol/L (137-145)
[2024-02-11] MEDS: SODIUM CHLORIDE 0.9% 1,000 ML 1000 ML IV (18:48)
[2024-02-11 19:04] LABS: Bacteria Urine Many (>30); Culture Indicated Urine Specimen Cultured; RBC Urine 1-5/HPF (0-5/HPF); Squamous Epithelial Cell Urine 0-1 /HPF (0-5/HPF); Urine Volume 10mL (spun); WBC Urine 30-100/HPF (0-5/HPF); White Blood Cell Casts Urine 1-5/LPF
[2024-02-11] MEDS: cefTRIAXone 2,000 MG in SODIUM CHLORIDE 0.9% 100 ML 200 MG IV (19:17)
[2024-02-11] MEDS: HYDROMORPHONE 0.5 MG INJ IV ×2 (19:44→22:44)
[2024-02-11] MEDS: LIDOCAINE 2% (PF) 5 ML in SODIUM CHLORIDE 0.9% 50 ML 330 ML IV (21:06)
[2024-02-11] MEDS: ACETAMINOPHEN IV 1,000 MG/100 ML VIAL 400 MG IV (21:09)
--- NOTE | 2024-02-11 22:03 | PC.NURSE ---
Bladder scanned PVR 0 mL.
--- NOTE | 2024-02-11 22:37 | PC.NURSE ---
Pt pressed call light due to IV came out of Right Ac. Tech applied pressure and applied gauze and new coban. RN aware
[2024-02-12 00:22] VITALS: BP 98/56; PULSE 88; RESP 17; TEMP 37.1; O2SAT 97
[2024-02-12] MEDS: LACTATED RINGERS 1,000 ML 100 ML IV (00:59)
[2024-02-12] MEDS: HYDROMORPHONE 1 MG INJ IV ×7 (01:00→22:58)
[2024-02-12] MEDS: PHENAZOPYRIDINE 100 MG TABLET PO ×3 (03:41→21:32)
[2024-02-12] MEDS: ONDANSETRON 4 MG/2 ML INJ IV ×2 (03:41→23:04)
--- NOTE | 2024-02-12 04:44 | P.HP_ITS ---
History of Present Illness History of Present Illness Chief complaint: left flank pain Narrative: 53 y/o with PMH of migraine, PUD, ovarian torsion, presented with left flank pain, pyelonephritis, after she had dysuria in the past 2-[address] shows moderate to severe Lt hydronephrosis with high grade stenosis at UPJ which is likely chronic. [facility] Medical History Foraminal stenosis of cervical region Lacunar syndrome UTI (urinary tract infection) Hyperlipidemia Vision disorder Migraines (~1984) Foot pain (~2017) Mononucleosis (~1979) Chicken pox (~1975) Pneumonia (~1980) Ovarian torsion (~1995) Ovarian cyst Irregular menstrual cycle (~1984) History of menopause (~2012) Hemorrhoid (~1997) Gastric ulcer (~1988) Hip dysplasia (~1979) Osteoarthritis (~2009) History of melanoma (~2018) Family history of breast cancer Metatarsalgia, left foot Preventative health care Surgical History Anesthesia History of tonsillectomy and adenoidectomy (~1977) History of section (~1996) History of hip surgery (~2009) History of right knee surgery (~2019) Status post rotator cuff repair (~2016) History of oophorectomy Family History Father Alzheimer's disease History of bipolar disorder CLL (chronic lymphocytic leukemia) History of heart disease Hyperlipidemia Hypertension Mental health problem History of heart attack Mother Osteoarthritis Breast cancer History of heart disease Hyperlipidemia Grandfather Alcoholic Grandmother Stroke Dementia Grandfather Cirrhosis Alcoholic Grandmother Hypertension Stroke Family/Other Mental health problem Social History household members: spouse and family Smoking Status: Never smoker alcohol intake: current substance use type: does not use Meds Home Medications and Allergies Home Medications Medication Instructions Recorded Confirmed Type melatonin 5 mg tablet 5 mg PO BEDTIME PRN Sleep 10/14/20 02/11/24 History ibuprofen 200 mg capsule 400 mg PO Q8H 10/11/21 02/11/24 History sumatriptan succinate 100 mg tablet See Rx Instructions PO .COMPLEX 11/27/23 02/11/24 Rx #30 tabs Allergies Allergy/AdvReac Type Severity Reaction Status Date / Time No Known Drug Allergies Allergy Verified 01/22/24 15:05 Review of Systems Constitutional Comments: fever, chills Cardiovascular Comments: w/o chest pain Respiratory Comments: w/o SOB Gastrointestinal Comments: w/o abdominal pain Genitourinary Comments: frequent and painful voiding in the last few days OTC cranberry w/o help without hematuria Lt flank pain Exam Vital Signs (past 8 hours): - 02/11/24 21:00 02/11/24 21:01 02/11/24 21:01 Temperature Pulse Rate 88 86 Respiratory Rate Blood Pressure 130/63 Pulse Oximetry 94 99 Oxygen Delivery Method Oxygen Flow Rate 02/11/24 21:30 02/11/24 21:31 02/11/24 21:31 Temperature Pulse Rate 96 H 96 H Respiratory Rate 40 H 33 H Blood Pressure 128/79 Pulse Oximetry 96 98 Oxygen Delivery Method Oxygen Flow Rate 02/11/24 22:00 02/11/24 22:30 02/11/24 22:45 Temperature 98.4 F Pulse Rate 92 H 89 87 Respiratory Rate 31 H 25 H 19 Blood Pressure 122/87 Pulse Oximetry 94 96 98 Oxygen Delivery Method Room Air Oxygen Flow Rate 02/12/24 00:22 Temperature 98.8 F Pulse Rate 88 Respiratory Rate 17 Blood Pressure 98/56 L Pulse Oximetry 97 Oxygen Delivery Method Oxygen Flow Rate 0 Oxygen Delivery Method Room Air Oxygen Flow Rate 0 Const Other: in mild distress, having flank pain HENMT Other: normocephalic Resp Other: normal respiratory effort Cardio Other: RRR Skin Other: no rashes Neuro Other: no deficits Psych Other: appropriate mood, lucid Objective Labs 02/11/24 17:40 02/11/24 17:40 Labs: Laboratory Results - last 24 hr 02/11/24 02/11/24 17:40 18:30 WBC 11.6 H RBC 4.16 Hgb 13.3 Hct 39.5 MCV 94.9 MCH 32.0 MCHC 33.8 RDW 13.1 Plt Count 406 H Neut % (Auto) 81.3 H Lymph % (Auto) 11.3 L [place] % (Auto) 6.7 Eos % (Auto) 0.4 L Baso % (Auto) 0.3 Neut # (Auto) 9400 H Lymph # (Auto) 1300 [place] # (Auto) 800 Eos # (Auto) 0 Baso # (Auto) 0 Sodium 139 Potassium 3.1 L Chloride 101 Carbon Dioxide 23 BUN 21 H Creatinine 1.12 H Estimated GFR 58 L BUN/Creatinine Ratio 18.8 Glucose 97 Calcium 9.6 Urine RBC 1-5/hpf Urine WBC 30-100/hpf H Ur Squamous Epith Cells 0-1 /hpf Urine Bacteria Many (>30) H WBC Casts 1-5/lpf H Ur Culture Indicated? Specimen cultured Vol Urine Centrifuged 10ml (spun) Assessment & Plan Assessment and plan (1) Pyelonephritis: Status: Acute (2) Hydronephrosis: Qualifiers: Hydronephrosis type: unspecified Qualified Code(s): N13.30 - Unspecified hydronephrosis Status: Acute (3) Hyperlipidemia: Qualifiers: Hyperlipidemia type: familial hypercholesterolemia Qualified Code(s): E 78.01 - Familial hypercholesterolemia Status: Acute Assessment & Plan narrative: Acute Lt Pyelonephritis - Rocephin - not septic on admission but BP decreased over night Lt Hydronephrosis - urology will see her - likely high-grade Lt UPJ stricture - NPO in case she will have cystoscopy DVT prophylaxis - SCDs Time-Based Coding :: [TOTAL MINUTES] spent with patient and on the chart (including review of chart, obtaining history, exam, reviewing outside data, placing orders, documenting exam and treatment plan, and counseling patient) on [DATE]. Quality VTE Deep Vein Thrombosis/Pulmonary Embolism Present on Admission: No
[2024-02-12 05:47] VITALS: BP 102/56; PULSE 79; RESP 17; TEMP 36.4; O2SAT 97
[2024-02-12 06:13] LABS: Add Manual Diff / Slide Review NO; Basophils Absolute Auto 100 /uL (0-100); Basophils Percent Auto 0.8 % (0-2); Eosinophils Absolute Auto 0 /uL (0-450); Hematocrit 34.2 % (36-46); Hemoglobin 11.5 g/dL (12.0-16.0); Lymphocytes Absolute Auto 400 /uL (1100-4500); Lymphocytes Percent Auto 2.6 % (25-40); Mean Corpuscular HGB Conc 33.7 % (30-36); Mean Corpuscular Hemoglobin 32.1 PG (26-34); Mean Corpuscular Volume 95.2 fL (80-100); Monocytes Absolute Auto 1100 /uL (0-900); Monocytes Percent Auto 8.2 % (3-14); Neutrophils Absolute Auto 12300 /uL (1500-7000); Neutrophils Percent Auto 88.4 % (50-75); Platelet Count 279 X10^3/uL (150-400); Red Cell Distribution Width 13.2 % (11.6-14.8); White Blood Cell Count 13.9 X10^3/uL (4.5-11.0)
[2024-02-12 06:46] LABS: BUN Creatinine Ratio 18.8 (6-22); Blood Urea Nitrogen 18 mg/dL (7-17); Calcium 8.6 mg/dL (8.4-10.2); Carbon Dioxide 23 mmol/L (22-32); Chloride 106 mmol/L (98-107); Estimated Glomerular Filt Rate > 60 mL/min (>60); Glucose 121 mg/dL (70-100); HEMOLYSIS < 15 (0-50); Potassium 3.5 mmol/L (3.4-5.1); Sodium 136 mmol/L (137-145)
--- NOTE | 2024-02-12 07:58 | PC.NURSE ---
Patient resting in bed this morning, denies needs at this time. States she didn't sleep much last night and plans to rest at this time. Call light within reach. Continue to monitor.
[2024-02-12 08:00] VITALS: BP 93/64; PULSE 82; RESP 17; TEMP 36.8; O2SAT 97
--- NOTE | 2024-02-12 08:41 | P.CONS_ITS ---
History of Present Illness Consult details Date Patient Seen: 02/12/24 Time Patient Seen: 07:45 Chief complaint: left flank pain Narrative: 53 y/o F admitted to for management of left flank pain and left pyelonephritis. Briefly, she does not have a history. On the morning of 09 Feb 2024, she developed suprapubic discomfort and an uncomfortableness with urination. She also admitted to urinary urgency. She otherwise denied any dysuria or urinary frequency. These symptoms continued until 11 Feb 2024, at which time she developed severe left flank pain that would radiate into her left lower abdominal quadrant while on her drive back into the area from [place]. The pain was initially as high as a 6/10, however, it acutely worsened to a 9/10 as soon as she presented to ED. Her evaluation was notable for AFVSS, UA concerning for infection, WBC of 13.9 this AM, sCr of 0.96 this AM and a NCCT Abd/Pel that demonstrated severe left hydronephrosis and likely left UPJO. Despite multiple attempts to control her pain, it was ultimately unsuccessful and she was admitted for pain and antibiotic management. She continues to suffer from severe left flank pain and dysuria with urinary frequency/urgency. Meds Home Medications and Allergies Home Medications Medication Instructions Recorded Confirmed Type melatonin 5 mg tablet 5 mg PO BEDTIME PRN Sleep 10/14/20 02/11/24 History ibuprofen 200 mg capsule 400 mg PO Q8H 10/11/21 02/11/24 History sumatriptan succinate 100 mg tablet See Rx Instructions PO .COMPLEX 11/27/23 02/11/24 Rx #30 tabs Allergies Allergy/AdvReac Type Severity Reaction Status Date / Time No Known Drug Allergies Allergy Verified 01/22/24 15:05 Review of Systems Review of Systems Narrative: CONSTITUTIONAL: Denies weight loss, fevers, chills. HEENT: Denies change in vision, hearing. RESP: Denies SOB, cough. CV: Denies palpations, CP. GI: Denies abodminal pain, nausea, vomiting, diarrhea. : Denies dysuria, hematuria, inability to void. MSK: Denies myalgia, joint pain. SKIN: Denies rash, pruritus. NEURO: Denies headache, syncope. PSYCH: Denies recent change in mood, anxiety, depression. Exam Vital Signs (past 8 hours): - 02/12/24 05:47 02/12/24 08:00 Temperature 97.6 F 98.3 F Pulse Rate 79 82 Respiratory Rate 17 17 Blood Pressure 102/56 L 93/64 Pulse Oximetry 97 97 Oxygen Flow Rate 0 0 Oxygen Delivery Method Room Air Oxygen Flow Rate 0 Narrative Exam Narrative: GEN: Alert and oriented X3. No acute distress. Well-nourished. EYES: PERRLA, EOMI. HENT: Moist mucus membranes, no scleral icterus, normal neck ROM. RESP: Unlabored breathing, equal rise and fall of chest bilaterally, no cyanosis appreciated. CV: No peripheral edema, unremarkable heart rate. ABD: Soft, non-tender, non-distended, no palpable masses. : Mild L CVAT. EXT: No edema, clubbing or cyanosis. SKIN: No rashes or lesions. NEURO: No focal neurologic deficits, CN II-XII grossly intact. PSYCH: Cooperative, appropriate mood and affect. Objective Labs 02/12/24 05:27 02/12/24 05:27 Labs: Laboratory Results - last 24 hr 02/11/24 02/11/24 02/12/24 17:40 18:30 05:27 WBC 11.6 H 13.9 H RBC 4.16 3.60 L Hgb 13.3 11.5 L Hct 39.5 34.2 L MCV 94.9 95.2 MCH 32.0 32.1 MCHC 33.8 33.7 RDW 13.1 13.2 Plt Count 406 H 279 Neut % (Auto) 81.3 H 88.4 H Lymph % (Auto) 11.3 L 2.6 L [place] % (Auto) 6.7 8.2 Eos % (Auto) 0.4 L 0.0 L Baso % (Auto) 0.3 0.8 Neut # (Auto) 9400 H 23875 H Lymph # (Auto) 1300 400 L [place] # (Auto) 800 1100 H Eos # (Auto) 0 0 Baso # (Auto) 0 100 Sodium 139 136 L Potassium 3.1 L 3.5 Chloride 101 106 Carbon Dioxide 23 23 BUN 21 H 18 H Creatinine 1.12 H 0.96 Estimated GFR 58 L > 60 BUN/Creatinine Ratio 18.8 18.8 Glucose 97 121 H Calcium 9.6 8.6 Urine RBC 1-5/hpf Urine WBC 30-100/hpf H Ur Squamous Epith Cells 0-1 /hpf Urine Bacteria Many (>30) H WBC Casts 1-5/lpf H Ur Culture Indicated? Specimen cultured Vol Urine Centrifuged 10ml (spun) PFSH Medical History Foraminal stenosis of cervical region Lacunar syndrome UTI (urinary tract infection) Hyperlipidemia Vision disorder Migraines (~1984) Foot pain (~2017) Mononucleosis (~1979) Chicken pox (~1975) Pneumonia (~1980) Ovarian torsion (~1995) Ovarian cyst Irregular menstrual cycle (~1984) History of menopause (~2012) Hemorrhoid (~1997) Gastric ulcer (~1988) Hip dysplasia (~1979) Osteoarthritis (~2009) History of melanoma (~2018) Family history of breast cancer Metatarsalgia, left foot Preventative health care Surgical History Anesthesia History of tonsillectomy and adenoidectomy (~1977) History of section (~1996) History of hip surgery (~2009) History of right knee surgery (~2019) Status post rotator cuff repair (~2016) History of oophorectomy Family History Father Alzheimer's disease History of bipolar disorder CLL (chronic lymphocytic leukemia) History of heart disease Hyperlipidemia Hypertension Mental health problem History of heart attack Mother Osteoarthritis Breast cancer History of heart disease Hyperlipidemia Grandfather Alcoholic Grandmother Stroke Dementia Grandfather Cirrhosis Alcoholic Grandmother Hypertension Stroke Family/Other Mental health problem Social History household members: spouse and family Tobacco & Substance Use Smoking Status: Never smoker alcohol intake: current substance use type: does not use Assessment & Plan Assessment and plan (1) Ureteropelvic junction obstruction: Status: Acute Plan: 53 y/o F noted to have severe left flank pain in the setting of pyelonephritis and imaging noting severe left hydronephrosis and likely left UPJO. Discussed at length that this is a chronic condition and she is likely only suffering from severe pain at the moment secondary to her left pyelonephritis. Her renal function has otherwise remained stable, therefore, a cystoscopy with left ureteral stent insertion is not indicated at this time. She will benefit from possible NM Renal lasix scan as an outpatient to ensure the left kidney is not chronically obstructed (not absolutely necessary as her renal function is normal, her left renal parenchyma appears healthy and this is her first symptomatic episode). Otherwise, recommend pain control and antibiotic management with hospitalist team. Appreciate their assistance with the care of this patient. She may resume a regular diet at this point if deemed appropriate by her primary team. I will continue to follow her throughout her hospital admission. (2) Pyelonephritis: Status: Acute Plan: Please see above plan. Time-Based Coding :: [TOTAL MINUTES] spent with patient and on the chart (including review of chart, obtaining history, exam, reviewing outside data, placing orders, documenting exam and treatment plan, and counseling patient) on [DATE]. PROFEE Charge Codes Inpatient or Observation consultation: [id number]
[2024-02-12] MEDS: LACTATED RINGERS 1,000 ML 150 ML IV ×3 (08:54→23:42)
[2024-02-12] MEDS: ACETAMINOPHEN IV 1,000 MG/100 ML VIAL 400 MG IV (11:10)
--- NOTE | 2024-02-12 11:19 | PC.NURSE ---
Patient c/o of ongoing headache now, requesting torodal and asking about being cleared to drink water. Message relayed to Dr. Henry, ordered received.
[2024-02-12] MEDS: KETOROLAC 30 MG/ML VIAL 15 MG IV ×2 (11:22→23:25)
[2024-02-12 12:00] VITALS: BP 94/60; PULSE 67; RESP 17; TEMP 36.7; O2SAT 95
--- NOTE | 2024-02-12 15:44 | CM.DANOTE ---
Initial DCP Assessment Visit Note Reviewed EMR and team rounds for pt's medical status and updates. Met with pt and her family at bedside to introduce self and role. Pt was found to be resting in bed, appearing somewhat uncomfortable, however was able to discuss her plan for home d/c with family. She lives independently with her here in [place]. Her will plan to transport her home once medically stable for d/c, likley 1-2 more days. Payor: William Weber PCP: Dr. Noah Armstrong Pt is a 53 year-old F who presented to the ED last evening with worsening/severe L-sided flank pain. She shares that she started experiencing burning with urination about three days ago, started taking over the counter cranberry supplements, thought she was better for a few days, but then by yesterday she had sudden onset mod/severe worsening pain that did not let up. CT abd/pelvis showed moderate/severe left-sided hydronephrosis, and was dx with pyelonephritis. She was admitted for intractable pain, was started on IV antibiotics/fluids/pain medication. Urology consulted today, did not recommend surgical intervention at this time. They did recommend for her to schedule an OP Urology Consult to further evaluation her ureteral stenosis, likely a chronic and worsening condition that is directly related to this new dx. DCP will continue to monitor for final d/c needs and recommendations. Discharge Planning/Care Management CM Discharge Assessment Start: 02/12/24 15:42 Freq: Status: Active Protocol: Document 02/12/24 15:42 DPL (Rec: 02/12/24 15:44 DPL [id number]) Discharge Planning Assessment Assigned Manager Proposal JENNIFER Dillard Advance Directives? No History Provided By Patient,Family Member,Medical Record Expected Length of Stay 3 Has Patient been admitted in last 30 No days? Prior Living Arrangements House Household Members spouse,family Type of transporation used prior to Drives own vehicle admit Independent with ADL's Yes Is patient alert and oriented? Yes Caregiver for Another No Comment OP Urology Eval Barriers to Discharge No Discharge Plan Home Referrals Initiated None needed Whiteboard Updated in Patient Room with Yes name and ext. # of Manager Proposal Review Status In Process Please Provide Date Initial DC 02/12/24 Assessment Was Performed
--- NOTE | 2024-02-12 17:59 | PM.HP.1 ---
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 shows moderate to severe Lt hydronephrosis with high grade stenosis at UPJ which is likely chronic. [facility] Medical History Foraminal stenosis of cervical region Lacunar syndrome UTI (urinary tract infection) Hyperlipidemia Vision disorder Migraines (~1984) Foot pain (~2017) Mononucleosis (~1979) Chicken pox (~1975) Pneumonia (~1980) Ovarian torsion (~1995) Ovarian cyst Irregular menstrual cycle (~1984) History of menopause (~2012) Hemorrhoid (~1997) Gastric ulcer (~1988) Hip dysplasia (~1979) Osteoarthritis (~2009) History of melanoma (~2018) Family history of breast cancer Metatarsalgia, left foot Preventative health care Surgical History Anesthesia History of tonsillectomy and adenoidectomy (~1977) History of section (~1996) History of hip surgery (~2009) History of right knee surgery (~2019) Status post rotator cuff repair (~2016) History of oophorectomy Family History Father Alzheimer's disease History of bipolar disorder CLL (chronic lymphocytic leukemia) History of heart disease Hyperlipidemia Hypertension Mental health problem History of heart attack Mother Osteoarthritis Breast cancer History of heart disease Hyperlipidemia Grandfather Alcoholic Grandmother Stroke Dementia Grandfather Cirrhosis Alcoholic Grandmother Hypertension Stroke Family/Other Mental health problem Social History household members: spouse and family Smoking Status: Never smoker alcohol intake: current substance use type: does not use Meds Home Medications and Allergies Home Medications Medication Instructions Recorded Confirmed Type melatonin 5 mg tablet 5 mg PO BEDTIME PRN Sleep 10/14/20 02/11/24 History ibuprofen 200 mg capsule 400 mg PO Q8H 10/11/21 02/11/24 History sumatriptan succinate 100 mg tablet See Rx Instructions PO .COMPLEX 11/27/23 02/11/24 Rx #30 tabs Allergies Allergy/AdvReac Type Severity Reaction Status Date / Time No Known Drug Allergies Allergy Verified 01/22/24 15:05 Review of Systems Review of Systems ROS: Yes All systems reviewed with the patient and are negative except as otherwise documented Exam Vital Signs (past 8 hours): - 02/12/24 12:00 Temperature 98.0 F Pulse Rate 67 Respiratory Rate 17 Blood Pressure 94/60 Pulse Oximetry 95 Oxygen Flow Rate 0 Oxygen Delivery Method Room Air Oxygen Flow Rate 0 Narrative Exam Narrative: general: distress, ill appearing lung: normal effort cardiac: RRR abd: soft, non-tender neuro: no focal deficits Objective Labs 02/12/24 05:27 02/12/24 05:27 Labs: Laboratory Results - last 24 hr 02/11/24 02/11/24 02/12/24 17:40 18:30 05:27 WBC 11.6 H 13.9 H RBC 4.16 3.60 L Hgb 13.3 11.5 L Hct 39.5 34.2 L MCV 94.9 95.2 MCH 32.0 32.1 MCHC 33.8 33.7 RDW 13.1 13.2 Plt Count 406 H 279 Neut % (Auto) 81.3 H 88.4 H Lymph % (Auto) 11.3 L 2.6 L [place] % (Auto) 6.7 8.2 Eos % (Auto) 0.4 L 0.0 L Baso % (Auto) 0.3 0.8 Neut # (Auto) 9400 H 48003 H Lymph # (Auto) 1300 400 L [place] # (Auto) 800 1100 H Eos # (Auto) 0 0 Baso # (Auto) 0 100 Sodium 139 136 L Potassium 3.1 L 3.5 Chloride 101 106 Carbon Dioxide 23 23 BUN 21 H 18 H Creatinine 1.12 H 0.96 Estimated GFR 58 L > 60 BUN/Creatinine Ratio 18.8 18.8 Glucose 97 121 H Calcium 9.6 8.6 Urine RBC 1-5/hpf Urine WBC 30-100/hpf H Ur Squamous Epith Cells 0-1 /hpf Urine Bacteria Many (>30) H WBC Casts 1-5/lpf H Ur Culture Indicated? Specimen cultured Vol Urine Centrifuged 10ml (spun) Assessment & Plan Assessment & Plan narrative: (1) Pyelonephritis: Status: Acute (2) Hydronephrosis: Qualifiers: Hydronephrosis type: unspecified Qualified Code(s): N13.30 - Unspecified hydronephrosis Status: Acute (3) Hyperlipidemia: Qualifiers: Hyperlipidemia type: familial hypercholesterolemia Qualified Code(s): E78.01 - Familial hypercholesterolemia Status: Acute Assessment & Plan narrative: Acute Lt Pyelonephritis - Rocephin - not septic on admission but BP decreased over night Lt Hydronephrosis - urology will see her - likely high-grade Lt UPJ stricture - NPO in case she will have cystoscopy DVT prophylaxis - SCDs Time-Based Coding :: [TOTAL MINUTES] spent with patient and on the chart (including review of chart, obtaining history, exam, reviewing outside data, placing orders, documenting exam and treatment plan, and counseling patient) on [DATE]. Quality VTE Deep Vein Thrombosis/Pulmonary Embolism Present on Admission: No
[2024-02-12 20:00] VITALS: BP 101/54; PULSE 66; RESP 18; TEMP 36.2; O2SAT 96
[2024-02-12] MEDS: cefTRIAXone 2,000 MG in SODIUM CHLORIDE 0.9% 100 ML 200 MG IV (21:28)
[2024-02-13] MEDS: HYDROMORPHONE 1 MG INJ IV ×6 (05:14→23:41)
[2024-02-13 06:34] LABS: Add Manual Diff / Slide Review NO; Basophils Absolute Auto 0 /uL (0-100); Basophils Percent Auto 0.2 % (0-2); Eosinophils Absolute Auto 0 /uL (0-450); Eosinophils Percent Auto 0.4 % (2-4); Hematocrit 30.8 % (36-46); Hemoglobin 10.5 g/dL (12.0-16.0); Lymphocytes Absolute Auto 700 /uL (1100-4500); Lymphocytes Percent Auto 8.1 % (25-40); Mean Corpuscular HGB Conc 34.2 % (30-36); Mean Corpuscular Hemoglobin 32.5 PG (26-34); Mean Corpuscular Volume 95.2 fL (80-100); Monocytes Absolute Auto 700 /uL (0-900); Monocytes Percent Auto 7.7 % (3-14); Neutrophils Absolute Auto 7500 /uL (1500-7000); Neutrophils Percent Auto 83.6 % (50-75); Platelet Count 234 X10^3/uL (150-400); Red Blood Cell Count 3.24 X10^6/uL (4.0-5.2); Red Cell Distribution Width 13.6 % (11.6-14.8); White Blood Cell Count 8.9 X10^3/uL (4.5-11.0)
[2024-02-13] MEDS: KETOROLAC 30 MG/ML VIAL 15 MG IV (06:47)
[2024-02-13] MEDS: ONDANSETRON 4 MG/2 ML INJ IV ×4 (06:47→23:41)
[2024-02-13 06:50] LABS: Blood Urea Nitrogen 16 mg/dL (7-17); Calcium 8.6 mg/dL (8.4-10.2); Carbon Dioxide 28 mmol/L (22-32); Chloride 105 mmol/L (98-107); Estimated Glomerular Filt Rate > 60 mL/min (>60); Glucose 99 mg/dL (70-100); HEMOLYSIS < 15 (0-50); Sodium 137 mmol/L (137-145)
[2024-02-13 08:00] VITALS: BP 100/63; PULSE 68; RESP 16; TEMP 36.1; O2SAT 100
[2024-02-13] MEDS: PHENAZOPYRIDINE 100 MG TABLET PO ×3 (09:36→20:20)
[2024-02-13] MEDS: LACTATED RINGERS 1,000 ML 150 ML IV ×2 (09:37→16:47)
[2024-02-13] MEDS: ACETAMINOPHEN IV 1,000 MG/100 ML VIAL 400 MG IV (12:06)
--- NOTE | 2024-02-13 13:10 | CM.DPC ---
DCP Cont. Reviewed EMR and team rounds for status updates. Plan is d/c home tomorrow on oral antibiotics, family will transport. No further needs identified at this time.
[2024-02-13] MEDS: PROCHLORPERAZINE 10 MG/2 ML VIAL 5 MG IV ×2 (13:24→20:21)
--- NOTE | 2024-02-13 15:11 | PM.CN ---
History of Present Illness Consult details Date Patient Seen: 02/13/24 Time Patient Seen: 07:45 Chief complaint: left flank pain Narrative: 53 y/o F admitted to for management of left flank pain and left pyelonephritis. She was noted to have left severe hydronephrosis and concern for left UPJO. Her urinary symptoms have continued to improve, she no longer has as severe of urinary frequency/urgency or dysuria, although, she has been taking phenazopyridine and is not sure if it is from the antibiotics or this medicine that she is improving. She continues to intermittently feel very warm and sweaty, yet denies any true fevers or chills. Meds Home Medications and Allergies Home Medications Medication Instructions Recorded Confirmed Type melatonin 5 mg tablet 5 mg PO BEDTIME PRN Sleep 10/14/20 02/11/24 History ibuprofen 200 mg capsule 400 mg PO Q8H 10/11/21 02/11/24 History sumatriptan succinate 100 mg tablet See Rx Instructions PO .COMPLEX 11/27/23 02/11/24 Rx #30 tabs Allergies Allergy/AdvReac Type Severity Reaction Status Date / Time No Known Drug Allergies Allergy Verified 01/22/24 15:05 Review of Systems Review of Systems Narrative: CONSTITUTIONAL: Denies weight loss, fevers, chills. HEENT: Denies change in vision, hearing. RESP: Denies SOB, cough. CV: Denies palpations, CP. GI: Denies abodminal pain, nausea, vomiting, diarrhea. MSK: Denies myalgia, joint pain. SKIN: Denies rash, pruritus. NEURO: Denies headache, syncope. PSYCH: Denies recent change in mood, anxiety, depression. Exam Vital Signs (past 8 hours): - 02/13/24 08:00 02/13/24 09:15 Temperature 97.0 F L Pulse Rate 68 Respiratory Rate 16 Blood Pressure 100/63 Pulse Oximetry 100 Oxygen Delivery Method Room Air Oxygen Flow Rate 0 Oxygen Delivery Method Room Air Oxygen Flow Rate 0 Narrative Exam Narrative: GEN: Alert and oriented X3. No acute distress. Well-nourished. EYES: PERRLA, EOMI. HENT: Moist mucus membranes, no scleral icterus, normal neck ROM. RESP: Unlabored breathing, equal rise and fall of chest bilaterally, no cyanosis appreciated. CV: No peripheral edema, unremarkable heart rate. ABD: Soft, non-tender, non-distended, no palpable masses. : No CVAT bilaterally. EXT: No edema, clubbing or cyanosis. SKIN: No rashes or lesions. NEURO: No focal neurologic deficits, CN II-XII grossly intact. PSYCH: Cooperative, appropriate mood and affect. Objective Labs 02/13/24 06:10 02/13/24 06:10 Labs: Laboratory Results - last 24 hr 02/13/24 06:10 WBC 8.9 RBC 3.24 L Hgb 10.5 L Hct 30.8 L MCV 95.2 MCH 32.5 MCHC 34.2 RDW 13.6 Plt Count 234 Neut % (Auto) 83.6 H Lymph % (Auto) 8.1 L [place] % (Auto) 7.7 Eos % (Auto) 0.4 L Baso % (Auto) 0.2 Neut # (Auto) 7500 H Lymph # (Auto) 700 L [place] # (Auto) 700 Eos # (Auto) 0 Baso # (Auto) 0 Sodium 137 Potassium 4.0 Chloride 105 Carbon Dioxide 28 BUN 16 Creatinine 1.07 H Estimated GFR > 60 BUN/Creatinine Ratio 15.0 Glucose 99 Calcium 8.6 PFSH Medical History Foraminal stenosis of cervical region Lacunar syndrome UTI (urinary tract infection) Hyperlipidemia Vision disorder Migraines (~1984) Foot pain (~2017) Mononucleosis (~1979) Chicken pox (~1975) Pneumonia (~1980) Ovarian torsion (~1995) Ovarian cyst Irregular menstrual cycle (~1984) History of menopause (~2012) Hemorrhoid (~1997) Gastric ulcer (~1988) Hip dysplasia (~1979) Osteoarthritis (~2009) History of melanoma (~2018) Family history of breast cancer Metatarsalgia, left foot Preventative health care Surgical History Anesthesia History of tonsillectomy and adenoidectomy (~1977) History of section (~1996) History of hip surgery (~2009) History of right knee surgery (~2019) Status post rotator cuff repair (~2016) History of oophorectomy Family History Father Alzheimer's disease History of bipolar disorder CLL (chronic lymphocytic leukemia) History of heart disease Hyperlipidemia Hypertension Mental health problem History of heart attack Mother Osteoarthritis Breast cancer History of heart disease Hyperlipidemia Grandfather Alcoholic Grandmother Stroke Dementia Grandfather Cirrhosis Alcoholic Grandmother Hypertension Stroke Family/Other Mental health problem Social History household members: spouse and family Tobacco & Substance Use Smoking Status: Never smoker alcohol intake: current substance use type: does not use Assessment & Plan Assessment and plan (1) Pyelonephritis: Status: Acute Plan: 53 y/o F noted to have severe left flank pain in the setting of pyelonephritis and imaging noting severe left hydronephrosis and likely left UPJO. Discussed at length that this is a chronic condition and she is likely only suffering from severe pain at the moment secondary to her left pyelonephritis. Her renal function has otherwise remained stable, therefore, a cystoscopy with left ureteral stent insertion is not indicated at this time. She will benefit from possible NM Renal lasix scan as an outpatient to ensure the left kidney is not chronically obstructed (not absolutely necessary as her renal function is normal, her left renal parenchyma appears healthy and this is her first symptomatic episode). Otherwise, recommend pain control and antibiotic management with hospitalist team. I will continue to follow her throughout her hospital admission. (2) Ureteropelvic junction obstruction: Status: Acute Plan: Please see above plan. Time-Based Coding :: [TOTAL MINUTES] spent with patient and on the chart (including review of chart, obtaining history, exam, reviewing outside data, placing orders, documenting exam and treatment plan, and counseling patient) on [DATE]. PROFEE Charge Codes Inpatient or Observation consultation: [id number]
--- NOTE | 2024-02-13 15:20 | PM.PN.1 ---
Subjective Subjective Interval history: still symptomatic, having pain and n/v Exam Vital Signs (past 8 hours): - 02/13/24 08:00 02/13/24 09:15 Temperature 97.0 F L Pulse Rate 68 Respiratory Rate 16 Blood Pressure 100/63 Pulse Oximetry 100 Oxygen Delivery Method Room Air Oxygen Flow Rate 0 Oxygen Delivery Method Room Air Oxygen Flow Rate 0 Narrative Exam Narrative: GEN: Alert and oriented X3. in pain EYES: PERRLA, EOMI. HENT: Moist mucus membranes, no scleral icterus, normal neck ROM. RESP: Unlabored breathing, equal rise and fall of chest bilaterally, no cyanosis appreciated. CV: No peripheral edema, unremarkable heart rate. ABD: Soft, non-tender, non-distended, no palpable masses. : No CVAT bilaterally. EXT: No edema, clubbing or cyanosis. SKIN: No rashes or lesions. NEURO: No focal neurologic deficits, CN II-XII grossly intact. PSYCH: Cooperative, appropriate mood and affect. Objective Labs 02/13/24 06:10 02/13/24 06:10 Labs: Laboratory Results - last 24 hr 02/13/24 06:10 WBC 8.9 RBC 3.24 L Hgb 10.5 L Hct 30.8 L MCV 95.2 MCH 32.5 MCHC 34.2 RDW 13.6 Plt Count 234 Neut % (Auto) 83.6 H Lymph % (Auto) 8.1 L [place] % (Auto) 7.7 Eos % (Auto) 0.4 L Baso % (Auto) 0.2 Neut # (Auto) 7500 H Lymph # (Auto) 700 L [place] # (Auto) 700 Eos # (Auto) 0 Baso # (Auto) 0 Sodium 137 Potassium 4.0 Chloride 105 Carbon Dioxide 28 BUN 16 Creatinine 1.07 H Estimated GFR > 60 BUN/Creatinine Ratio 15.0 Glucose 99 Calcium 8.6 PFSH Medical History Foraminal stenosis of cervical region Lacunar syndrome UTI (urinary tract infection) Hyperlipidemia Vision disorder Migraines (~1984) Foot pain (~2017) Mononucleosis (~1979) Chicken pox (~1975) Pneumonia (~1980) Ovarian torsion (~1995) Ovarian cyst Irregular menstrual cycle (~1984) History of menopause (~2012) Hemorrhoid (~1997) Gastric ulcer (~1988) Hip dysplasia (~1979) Osteoarthritis (~2009) History of melanoma (~2018) Family history of breast cancer Metatarsalgia, left foot Preventative health care Surgical History Anesthesia History of tonsillectomy and adenoidectomy (~1977) History of section (~1996) History of hip surgery (~2009) History of right knee surgery (~2019) Status post rotator cuff repair (~2016) History of oophorectomy Family History Father Alzheimer's disease History of bipolar disorder CLL (chronic lymphocytic leukemia) History of heart disease Hyperlipidemia Hypertension Mental health problem History of heart attack Mother Osteoarthritis Breast cancer History of heart disease Hyperlipidemia Grandfather Alcoholic Grandmother Stroke Dementia Grandfather Cirrhosis Alcoholic Grandmother Hypertension Stroke Family/Other Mental health problem Social History household members: spouse and family Smoking Status: Never smoker alcohol intake: current substance use type: does not use Assessment & Plan Assessment and plan (1) Pyelonephritis: Status: Acute Plan: 53 y/o F noted to have severe left flank pain in the setting of pyelonephritis and imaging noting severe left hydronephrosis and likely left UPJO. Discussed at length that this is a chronic condition and she is likely only suffering from severe pain at the moment secondary to her left pyelonephritis. Her renal function has otherwise remained stable, therefore, a cystoscopy with left ureteral stent insertion is not indicated at this time. She will benefit from possible NM Renal lasix scan as an outpatient to ensure the left kidney is not chronically obstructed (not absolutely necessary as her renal function is normal, her left renal parenchyma appears healthy and this is her first symptomatic episode). Otherwise, recommend pain control and antibiotic management with hospitalist team. I will continue to follow her throughout her hospital admission. (2) Ureteropelvic junction obstruction: Status: Acute Plan: Please see above plan. Assessment & Plan narrative: #Acute Left Pyelonephritis #Lt Hydronephrosis -continue Rocephin -pain control -urology consulted and do not feel intervention is necessary at this time DVT PPx: SCD CODE: carpet binder-Based Coding :: [TOTAL MINUTES] spent with patient and on the chart (including review of chart, obtaining history, exam, reviewing outside data, placing orders, documenting exam and treatment plan, and counseling patient) on [DATE]. Quality VTE Deep Vein Thrombosis/Pulmonary Embolism Present on Admission: No
[2024-02-13] MEDS: LACTATED RINGERS 500 ML IV (16:47)
[2024-02-13 20:00] VITALS: BP 147/76; PULSE 95; RESP 24; TEMP 36.2; O2SAT 100
[2024-02-13 20:21] VITALS: BP 150/88; PULSE 98
[2024-02-13] MEDS: cefTRIAXone 2,000 MG in SODIUM CHLORIDE 0.9% 100 ML 200 MG IV (21:24)
[2024-02-14 03:46] VITALS: BP 150/86; PULSE 90
[2024-02-14] MEDS: PROCHLORPERAZINE 10 MG/2 ML VIAL 5 MG IV (03:46)
[2024-02-14] MEDS: LACTATED RINGERS 1,000 ML 150 ML IV ×2 (03:47→10:28)
[2024-02-14] MEDS: HYDROMORPHONE 1 MG INJ IV (03:47)
[2024-02-14] MEDS: SUMAtriptan 25 MG TABLET 100 MG PO (04:40)
--- NOTE | 2024-02-14 05:38 | PC.NURSE ---
Pt continuing to have 5-7/10 pain, requiring her Diluadid 1 mg IV PRN Q3 pain control nearly as often as available. Continuing to have nausea and vomiting (5 episodes of emesis this shift) despite regular administration of alternating Zofran and Compazine. Provider made aware, and orders received for PO Dilaudid and scopolamine patch. ~0400 Pt reports migraine & requests home med Sumatriptan, order received & given.
[2024-02-14 06:35] LABS: Add Manual Diff / Slide Review NO; Basophils Absolute Auto 0 /uL (0-100); Basophils Percent Auto 0.2 % (0-2); Eosinophils Absolute Auto 0 /uL (0-450); Eosinophils Percent Auto 0.3 % (2-4); Hematocrit 29.4 % (36-46); Hemoglobin 10.1 g/dL (12.0-16.0); Lymphocytes Absolute Auto 500 /uL (1100-4500); Lymphocytes Percent Auto 7.7 % (25-40); Mean Corpuscular HGB Conc 34.4 % (30-36); Mean Corpuscular Hemoglobin 32.6 PG (26-34); Mean Corpuscular Volume 94.9 fL (80-100); Monocytes Absolute Auto 500 /uL (0-900); Monocytes Percent Auto 8.1 % (3-14); Neutrophils Absolute Auto 5000 /uL (1500-7000); Neutrophils Percent Auto 83.7 % (50-75); Platelet Count 238 X10^3/uL (150-400); Red Cell Distribution Width 12.9 % (11.6-14.8)
[2024-02-14 06:46] LABS: BUN Creatinine Ratio 13.5 (6-22); Blood Urea Nitrogen 12 mg/dL (7-17); Calcium 8.5 mg/dL (8.4-10.2); Carbon Dioxide 25 mmol/L (22-32); Chloride 103 mmol/L (98-107); Estimated Glomerular Filt Rate > 60 mL/min (>60); Glucose 78 mg/dL (70-100); HEMOLYSIS < 15 (0-50); Potassium 3.6 mmol/L (3.4-5.1); Sodium 135 mmol/L (137-145)
[2024-02-14] MEDS: SCOPOLAMINE 1 PATCH TOP (07:08)
[2024-02-14] MEDS: HYDROMORPHONE 2 MG TABLET PO ×4 (07:09→19:55)
[2024-02-14 09:00] VITALS: BP 130/77; PULSE 78; RESP 16; TEMP 36.2; O2SAT 98
[2024-02-14] MEDS: PHENAZOPYRIDINE 100 MG TABLET PO ×3 (09:12→20:00)
[2024-02-14] MEDS: SENNOSIDES 8.6 MG TABLET PO ×2 (09:12→20:00)
--- NOTE | 2024-02-14 10:47 | PC.NURSE ---
Addendum entered by Alma Barillas R.N. 02/14/24 19:16: Patients iv infiltrated around 1100am. aware of this and is ok with iv being out. Original Note: Patient has been nausea free and pain free since getting oral dilaudid this morning. She has not had any nausea or emesis since scopalomine patch applied. Up ad elizabeth, she is going to take a shower before her parents come to visit her. Her iv infiltrated and she does not have to have anymore ivf at this time. If she is tolerating oral well, will changed her to po antibiotics.
--- NOTE | 2024-02-14 14:06 | PM.PN.1 ---
Subjective Subjective Interval history: lights off in bed, worried about being able to manage pain at home Exam Vital Signs (past 8 hours): - 02/14/24 09:00 Temperature 97.2 F L Pulse Rate 78 Respiratory Rate 16 Blood Pressure 130/77 Pulse Oximetry 98 Oxygen Delivery Method Room Air Oxygen Flow Rate 0 Narrative Exam Narrative: GEN: Alert and oriented X3. in pain EYES: PERRLA, EOMI. HENT: Moist mucus membranes, no scleral icterus, normal neck ROM. RESP: Unlabored breathing, equal rise and fall of chest bilaterally, no cyanosis appreciated. CV: No peripheral edema, unremarkable heart rate. ABD: Soft, non-tender, non-distended, no palpable masses. : No CVAT bilaterally. EXT: No edema, clubbing or cyanosis. SKIN: No rashes or lesions. NEURO: No focal neurologic deficits, CN II-XII grossly intact. PSYCH: Cooperative, appropriate mood and affect. Objective Labs 02/14/24 06:00 02/14/24 06:00 Labs: Laboratory Results - last 24 hr 02/14/24 06:00 WBC 6.0 RBC 3.10 L Hgb 10.1 L Hct 29.4 L MCV 94.9 MCH 32.6 MCHC 34.4 RDW 12.9 Plt Count 238 Neut % (Auto) 83.7 H Lymph % (Auto) 7.7 L [place] % (Auto) 8.1 Eos % (Auto) 0.3 L Baso % (Auto) 0.2 Neut # (Auto) 5000 Lymph # (Auto) 500 L [place] # (Auto) 500 Eos # (Auto) 0 Baso # (Auto) 0 Sodium 135 L Potassium 3.6 Chloride 103 Carbon Dioxide 25 BUN 12 Creatinine 0.89 Estimated GFR > 60 BUN/Creatinine Ratio 13.5 Glucose 78 Calcium 8.5 PFSH Medical History Foraminal stenosis of cervical region Lacunar syndrome UTI (urinary tract infection) Hyperlipidemia Vision disorder Migraines (~1984) Foot pain (~2017) Mononucleosis (~1979) Chicken pox (~1975) Pneumonia (~1980) Ovarian torsion (~1995) Ovarian cyst Irregular menstrual cycle (~1984) History of menopause (~2012) Hemorrhoid (~1997) Gastric ulcer (~1988) Hip dysplasia (~1979) Osteoarthritis (~2009) History of melanoma (~2018) Family history of breast cancer Metatarsalgia, left foot Preventative health care Surgical History Anesthesia History of tonsillectomy and adenoidectomy (~1977) History of section (~1996) History of hip surgery (~2009) History of right knee surgery (~2019) Status post rotator cuff repair (~2016) History of oophorectomy Family History Father Alzheimer's disease History of bipolar disorder CLL (chronic lymphocytic leukemia) History of heart disease Hyperlipidemia Hypertension Mental health problem History of heart attack Mother Osteoarthritis Breast cancer History of heart disease Hyperlipidemia Grandfather Alcoholic Grandmother Stroke Dementia Grandfather Cirrhosis Alcoholic Grandmother Hypertension Stroke Family/Other Mental health problem Social History household members: spouse and family Smoking Status: Never smoker alcohol intake: current substance use type: does not use Assessment & Plan Assessment & Plan narrative: #Acute Left Pyelonephritis - pansensative e.coli #Lt Hydronephrosis -continue Rocephin, transition to fluoroquinolone tomorrow -pain control -urology consulted and do not feel intervention is necessary at this time their note is appropriate 53 y/o F noted to have severe left flank pain in the setting of pyelonephritis and imaging noting severe left hydronephrosis and likely left UPJO. Discussed at length that this is a chronic condition and she is likely only suffering from severe pain at the moment secondary to her left pyelonephritis. Her renal function has otherwise remained stable, therefore, a cystoscopy with left ureteral stent insertion is not indicated at this time. She will benefit from possible NM Renal lasix scan as an outpatient to ensure the left kidney is not chronically obstructed (not absolutely necessary as her renal function is normal, her left renal parenchyma appears healthy and this is her first symptomatic episode). Otherwise, recommend pain control and antibiotic management with hospitalist team. I will continue to follow her throughout her hospital admission. 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 Quality VTE Deep Vein Thrombosis/Pulmonary Embolism Present on Admission: No
--- NOTE | 2024-02-14 17:42 | PM.CN ---
History of Present Illness Consult details Date Patient Seen: 02/14/24 Time Patient Seen: 16:30 Chief complaint: left flank pain Narrative: 53 y/o F admitted to for management of left flank pain and left pyelonephritis. She was noted to have left severe hydronephrosis and concern for left UPJO. Her urinary symptoms have continued to improve, she no longer has as severe of urinary frequency/urgency or dysuria, although, she has been taking phenazopyridine and is not sure if it is from the antibiotics or this medicine that she is improving. The frequency of her feeling warm and sweaty have decreased greatly, however, she continues to have intermittent severe left flank pain. She would previously have highs of an 8/10, however, it has been a 6.5/10 at its worst in the last 24 hours. Meds Home Medications and Allergies Home Medications Medication Instructions Recorded Confirmed Type melatonin 5 mg tablet 5 mg PO BEDTIME PRN Sleep 10/14/20 02/11/24 History ibuprofen 200 mg capsule 400 mg PO Q8H 10/11/21 02/11/24 History sumatriptan succinate 100 mg tablet See Rx Instructions PO .COMPLEX 11/27/23 02/11/24 Rx #30 tabs Allergies Allergy/AdvReac Type Severity Reaction Status Date / Time No Known Drug Allergies Allergy Verified 01/22/24 15:05 Review of Systems Review of Systems Narrative: CONSTITUTIONAL: Denies weight loss, fevers, chills. HEENT: Denies change in vision, hearing. RESP: Denies SOB, cough. CV: Denies palpations, CP. GI: Denies abodminal pain, nausea, vomiting, diarrhea. : Denies dysuria, hematuria, inability to void. MSK: Denies myalgia, joint pain. SKIN: Denies rash, pruritus. NEURO: Denies headache, syncope. PSYCH: Denies recent change in mood, anxiety, depression. Exam Vital Signs (past 8 hours): Oxygen Delivery Method Room Air Oxygen Flow Rate 0 Narrative Exam Narrative: GEN: Alert and oriented X3. No acute distress. Well-nourished. EYES: PERRLA, EOMI. HENT: Moist mucus membranes, no scleral icterus, normal neck ROM. RESP: Unlabored breathing, equal rise and fall of chest bilaterally, no cyanosis appreciated. CV: No peripheral edema, unremarkable heart rate. ABD: Soft, non-tender, non-distended, no palpable masses. : No CVAT bilaterally. EXT: No edema, clubbing or cyanosis. SKIN: No rashes or lesions. NEURO: No focal neurologic deficits, CN II-XII grossly intact. PSYCH: Cooperative, appropriate mood and affect. Objective Labs 02/14/24 06:00 02/14/24 06:00 Labs: Laboratory Results - last 24 hr 02/14/24 06:00 WBC 6.0 RBC 3.10 L Hgb 10.1 L Hct 29.4 L MCV 94.9 MCH 32.6 MCHC 34.4 RDW 12.9 Plt Count 238 Neut % (Auto) 83.7 H Lymph % (Auto) 7.7 L [place] % (Auto) 8.1 Eos % (Auto) 0.3 L Baso % (Auto) 0.2 Neut # (Auto) 5000 Lymph # (Auto) 500 L [place] # (Auto) 500 Eos # (Auto) 0 Baso # (Auto) 0 Sodium 135 L Potassium 3.6 Chloride 103 Carbon Dioxide 25 BUN 12 Creatinine 0.89 Estimated GFR > 60 BUN/Creatinine Ratio 13.5 Glucose 78 Calcium 8.5 PFSH Medical History Foraminal stenosis of cervical region Lacunar syndrome UTI (urinary tract infection) Hyperlipidemia Vision disorder Migraines (~1984) Foot pain (~2017) Mononucleosis (~1979) Chicken pox (~1975) Pneumonia (~1980) Ovarian torsion (~1995) Ovarian cyst Irregular menstrual cycle (~1984) History of menopause (~2012) Hemorrhoid (~1997) Gastric ulcer (~1988) Hip dysplasia (~1979) Osteoarthritis (~2009) History of melanoma (~2018) Family history of breast cancer Metatarsalgia, left foot Preventative health care Surgical History Anesthesia History of tonsillectomy and adenoidectomy (~1977) History of section (~1996) History of hip surgery (~2009) History of right knee surgery (~2019) Status post rotator cuff repair (~2016) History of oophorectomy Family History Father Alzheimer's disease History of bipolar disorder CLL (chronic lymphocytic leukemia) History of heart disease Hyperlipidemia Hypertension Mental health problem History of heart attack Mother Osteoarthritis Breast cancer History of heart disease Hyperlipidemia Grandfather Alcoholic Grandmother Stroke Dementia Grandfather Cirrhosis Alcoholic Grandmother Hypertension Stroke Family/Other Mental health problem Social History household members: spouse and family Tobacco & Substance Use Smoking Status: Never smoker alcohol intake: current substance use type: does not use Assessment & Plan Assessment and plan (1) Pyelonephritis: Status: Acute Plan: 53 y/o F noted to have severe left flank pain in the setting of pyelonephritis and imaging noting severe left hydronephrosis and likely left UPJO. Discussed at length that this is a chronic condition and she is likely only suffering from severe pain at the moment secondary to her left pyelonephritis. Her renal function has otherwise remained stable, therefore, a cystoscopy with left ureteral stent insertion is not indicated at this time. She will benefit from possible NM Renal lasix scan as an outpatient to ensure the left kidney is not chronically obstructed (not absolutely necessary as her renal function is normal, her left renal parenchyma appears healthy and this is her first symptomatic episode). Otherwise, recommend pain control and antibiotic management with hospitalist team. I will continue to follow her throughout her hospital admission. (2) Ureteropelvic junction obstruction: Status: Acute Plan: Please see above plan. Time-Based Coding :: [TOTAL MINUTES] spent with patient and on the chart (including review of chart, obtaining history, exam, reviewing outside data, placing orders, documenting exam and treatment plan, and counseling patient) on [DATE]. PROFEE Charge Codes Inpatient or Observation consultation: [id number]
[2024-02-14] MEDS: IBUPROFEN 400 MG TABLET PO (18:48)
[2024-02-14 20:00] VITALS: BP 135/74; PULSE 66; RESP 18; TEMP 37.2; O2SAT 92
[2024-02-14] MEDS: CEFDINIR 300 MG CAPSULE PO (20:43)
[2024-02-15] MEDS: HYDROMORPHONE 2 MG TABLET PO ×4 (00:07→12:53)
[2024-02-15] MEDS: IBUPROFEN 400 MG TABLET PO ×2 (02:18→12:55)
[2024-02-15] MEDS: SUMAtriptan 25 MG TABLET PO (05:07)
[2024-02-15 06:36] LABS: Add Manual Diff / Slide Review NO; Basophils Absolute Auto 0 /uL (0-100); Basophils Percent Auto 0.5 % (0-2); Eosinophils Absolute Auto 100 /uL (0-450); Eosinophils Percent Auto 2.1 % (2-4); Hematocrit 30.3 % (36-46); Hemoglobin 10.4 g/dL (12.0-16.0); Lymphocytes Absolute Auto 1100 /uL (1100-4500); Lymphocytes Percent Auto 19.6 % (25-40); Mean Corpuscular HGB Conc 34.2 % (30-36); Mean Corpuscular Hemoglobin 31.9 PG (26-34); Mean Corpuscular Volume 93.5 fL (80-100); Monocytes Absolute Auto 600 /uL (0-900); Monocytes Percent Auto 11.4 % (3-14); Neutrophils Absolute Auto 3700 /uL (1500-7000); Neutrophils Percent Auto 66.4 % (50-75); Platelet Count 267 X10^3/uL (150-400); Red Blood Cell Count 3.25 X10^6/uL (4.0-5.2); Red Cell Distribution Width 12.7 % (11.6-14.8); White Blood Cell Count 5.6 X10^3/uL (4.5-11.0)
[2024-02-15 07:03] LABS: BUN Creatinine Ratio 11.8 (6-22); Blood Urea Nitrogen 10 mg/dL (7-17); Carbon Dioxide 29 mmol/L (22-32); Chloride 104 mmol/L (98-107); Estimated Glomerular Filt Rate > 60 mL/min (>60); Glucose 84 mg/dL (70-100); HEMOLYSIS < 15 (0-50); Potassium 3.4 mmol/L (3.4-5.1); Sodium 139 mmol/L (137-145)
[2024-02-15 08:00] VITALS: BP 127/70; PULSE 54; RESP 16; TEMP 36.3; O2SAT 99
[2024-02-15] MEDS: SENNOSIDES 8.6 MG TABLET PO (08:42)
[2024-02-15] MEDS: PHENAZOPYRIDINE 100 MG TABLET PO (08:42)
--- NOTE | 2024-02-15 11:28 | P.DS_ITS ---
History of Present Illness History of Present Illness Chief complaint: left flank pain Narrative: 53 y/o with PMH of migraine, PUD, ovarian torsion, presented with left flank pain, pyelonephritis, after she had dysuria in the past 2-[address] shows moderate to severe Lt hydronephrosis with high grade stenosis at UPJ which is likely chronic. Discharge Providers Provider Date of admission: 02/11/24 22:14 Discharge Date: 02/15/24 Primary care physician: Noah Armstrong DO Consults: Urology, Dr. Lopez. Discharge provider: Ladarius Díaz MD Summary Hospital Course Discharge Diagnosis: 1. Left pyelonephritis, present on admission and improving. 2. Chronic left hydronephrosis, present on admission and stable. Hospital Course: The patient was admitted with pyelonephritis. She would nausea and a fair amount of flank pain which was more anterior left groin pain. This improved with treatment of her infection with antibiotics. She did grow out E coli, this was pansensitive. Imaging revealed hydronephrosis on the left and urology saw her. There is suspicion was that this was a chronic, possibly congenital, left hydronephrosis. For acute management they recommended antibiotics and she will have outpatient follow up with Urology to further evaluate her renal function on the left kidney. On the day of discharge she was much improved and comfortable returning home with 10 additional days of Cipro b.i.d.. She requested Dilaudid pills specifically and these will be provided. Status at Discharge Cognitive/behavioral status at discharge: oriented Functional status at discharge: independent ambulation Overall status at discharge: patient is back to baseline Time Spent with Patient Time spent: Greater than 30 minutes Exam Vital Signs (past 8 hours): - 02/15/24 08:00 Temperature 97.3 F L Pulse Rate 54 L Respiratory Rate 16 Blood Pressure 127/70 Pulse Oximetry 99 Oxygen Delivery Method Room Air Oxygen Flow Rate 0 Narrative Exam Narrative: NAD, alert and oriented. Fluent speech. Lungs are clear, normal rate and effort. Heart is regular, no murmur gallop or rub. Abdomen is soft, non distended. Extremities are free of edema. No CVAT Objective Imaging CT scan - abdomen: Radiologist's impression: 1. Moderate to severe left-sided hydronephrosis extending to the level of left UPJ without calcified stones seen. Mild left perinephric fat stranding. Normal left ureteral caliber without obstructing ureteral stones. 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 2. No right-sided hydronephrosis or renal stones. Normal appearing urinary bladder. 3. No bowel obstruction or abnormal bowel wall thickening. No free fluid or free air. Labs 02/15/24 05:40 02/15/24 05:40 Labs: Laboratory Results - last 24 hr 02/15/24 05:40 WBC 5.6 RBC 3.25 L Hgb 10.4 L Hct 30.3 L MCV 93.5 MCH 31.9 MCHC 34.2 RDW 12.7 Plt Count 267 Neut % (Auto) 66.4 Lymph % (Auto) 19.6 L [place] % (Auto) 11.4 Eos % (Auto) 2.1 Baso % (Auto) 0.5 Neut # (Auto) 3700 Lymph # (Auto) 1100 [place] # (Auto) 600 Eos # (Auto) 100 Baso # (Auto) 0 Sodium 139 Potassium 3.4 Chloride 104 Carbon Dioxide 29 BUN 10 Creatinine 0.85 Estimated GFR > 60 BUN/Creatinine Ratio 11.8 Glucose 84 Calcium 9.0 [facility] Medical History Foraminal stenosis of cervical region Lacunar syndrome UTI (urinary tract infection) Hyperlipidemia Vision disorder Migraines (~1984) Foot pain (~2017) Mononucleosis (~1979) Chicken pox (~1975) Pneumonia (~1980) Ovarian torsion (~1995) Ovarian cyst Irregular menstrual cycle (~1984) History of menopause (~2012) Hemorrhoid (~1997) Gastric ulcer (~1988) Hip dysplasia (~1979) Osteoarthritis (~2009) History of melanoma (~2018) Family history of breast cancer Metatarsalgia, left foot Preventative health care Surgical History Anesthesia History of tonsillectomy and adenoidectomy (~1977) History of section (~1996) History of hip surgery (~2009) History of right knee surgery (~2019) Status post rotator cuff repair (~2016) History of oophorectomy Family History Father Alzheimer's disease History of bipolar disorder CLL (chronic lymphocytic leukemia) History of heart disease Hyperlipidemia Hypertension Mental health problem History of heart attack Mother Osteoarthritis Breast cancer History of heart disease Hyperlipidemia Grandfather Alcoholic Grandmother Stroke Dementia Grandfather Cirrhosis Alcoholic Grandmother Hypertension Stroke Family/Other Mental health problem Social History household members: spouse and family Smoking Status: Never smoker alcohol intake: current substance use type: does not use Discharge Assessment & Plan Assessment and Plan Assessment: 1. Left pyelonephritis, present on admission and improving. 2. Chronic left hydronephrosis, present on admission and stable. Plan of Treatment: Discharge home with 10 additional days of Cipro 500 b.i.d., outpatient Urology follow up we will be facilitated by Dr. Lopez. She will have Pyridium t.i.d. as needed and Dilaudid tablets as needed per her request. Discharge Plan Discharge Plan Patient Disposition: Home Provider Discharge Comment: Stable for discharge home on oral antibiotics. Discharge orders & Medications Prescriptions: New ciprofloxacin HCl 500 mg tablet 500 mg PO BID Qty: 20 0RF hydromorphone [Dilaudid] 2 mg tablet 2 mg PO Q6H PRN (Reason: pain) Qty: 10 0RF phenazopyridine [Pyridium] 100 mg tablet 100 mg PO TID PRN (Reason: pain) Qty: 20 0RF Continued sumatriptan succinate 100 mg tablet See Rx Instructions PO .COMPLEX Qty: 30 0RF Rx Instructions: take 1 tab at onset of headache; if no relief, may repeat 1 tab after at least 2 hrs; max = 2 tabs/24 hrs PO ibuprofen 200 mg capsule 400 mg PO Q8H melatonin 5 mg Tablet 5 mg PO BEDTIME PRN (Reason: Sleep) Rx Instructions: 5-10 mg nightly Follow up/Referrals: Noah Armstrong, [Primary Care Provider] - Diet/Activity/Treatments Diet: Regular Skin/Wound/Dressing Care Report to your healthcare provider any signs of infection, such as:: chills, fever and increased pain Visit Report/Discharge Packet Instructions: DI for Kidney Infection, Hydromorphone, Ciprofloxacin Stand Alone Forms: Patient Portal/API Discharge Data Primary Care Provider: Noah Armstrong Quality VTE Deep Vein Thrombosis/Pulmonary Embolism Present on Admission: No
--- NOTE | 2024-02-15 16:35 | P.CONS_ITS ---
History of Present Illness Consult details Date Patient Seen: 02/15/24 Time Patient Seen: 10:30 Chief complaint: left flank pain Narrative: 53 y/o F admitted to for management of left flank pain and left pyelonephritis. She was noted to have left severe hydronephrosis and concern for left UPJO. Her urinary symptoms have continued to improve, she no longer has as severe of urinary frequency/urgency or dysuria, although, she has been taking phenazopyridine and is not sure if it is from the antibiotics or this medicine that she is improving. The frequency of her feeling warm and sweaty have decreased greatly, however, she continues to have intermittent severe left flank pain. She would previously have highs of an 8/10, however, outside of a few hours last night her discomfort has greatly improved and she is excited to return home today. Meds Home Medications and Allergies Home Medications Medication Instructions Recorded Confirmed Type melatonin 5 mg tablet 5 mg PO BEDTIME PRN Sleep 10/14/20 02/11/24 History ibuprofen 200 mg capsule 400 mg PO Q8H 10/11/21 02/11/24 History sumatriptan succinate 100 mg tablet See Rx Instructions PO .COMPLEX 11/27/23 02/11/24 Rx #30 tabs ciprofloxacin HCl 500 mg tablet 500 mg PO BID #20 tabs 02/15/24 Rx hydromorphone 2 mg tablet 2 mg PO Q6H PRN pain #10 tabs 02/15/24 Rx (Dilaudid) phenazopyridine 100 mg tablet 100 mg PO TID PRN pain #20 tabs 02/15/24 Rx (Pyridium) Allergies Allergy/AdvReac Type Severity Reaction Status Date / Time No Known Drug Allergies Allergy Verified 01/22/24 15:05 Review of Systems Review of Systems Narrative: CONSTITUTIONAL: Denies weight loss, fevers, chills. HEENT: Denies change in vision, hearing. RESP: Denies SOB, cough. CV: Denies palpations, CP. GI: Denies abodminal pain, nausea, vomiting, diarrhea. : Denies dysuria, hematuria, inability to void. MSK: Denies myalgia, joint pain. SKIN: Denies rash, pruritus. NEURO: Denies headache, syncope. PSYCH: Denies recent change in mood, anxiety, depression. Exam Vital Signs (past 8 hours): Oxygen Delivery Method Room Air Oxygen Flow Rate 0 Narrative Exam Narrative: GEN: Alert and oriented X3. No acute distress. Well-nourished. EYES: PERRLA, EOMI. HENT: Moist mucus membranes, no scleral icterus, normal neck ROM. RESP: Unlabored breathing, equal rise and fall of chest bilaterally, no cyanosis appreciated. CV: No peripheral edema, unremarkable heart rate. ABD: Soft, non-tender, non-distended, no palpable masses. : No CVAT bilaterally. EXT: No edema, clubbing or cyanosis. SKIN: No rashes or lesions. NEURO: No focal neurologic deficits, CN II-XII grossly intact. PSYCH: Cooperative, appropriate mood and affect. Objective Labs 02/15/24 05:40 02/15/24 05:40 Labs: Laboratory Results - last 24 hr 02/15/24 05:40 WBC 5.6 RBC 3.25 L Hgb 10.4 L Hct 30.3 L MCV 93.5 MCH 31.9 MCHC 34.2 RDW 12.7 Plt Count 267 Neut % (Auto) 66.4 Lymph % (Auto) 19.6 L Sheridan % (Auto) 11.4 Eos % (Auto) 2.1 Baso % (Auto) 0.5 Neut # (Auto) 3700 Lymph # (Auto) 1100 [place]idan # (Auto) 600 Eos # (Auto) 100 Baso # (Auto) 0 Sodium 139 Potassium 3.4 Chloride 104 Carbon Dioxide 29 BUN 10 Creatinine 0.85 Estimated GFR > 60 BUN/Creatinine Ratio 11.8 Glucose 84 Calcium 9.0 [facility] Medical History Foraminal stenosis of cervical region Lacunar syndrome UTI (urinary tract infection) Hyperlipidemia Vision disorder Migraines (~1984) Foot pain (~2017) Mononucleosis (~1979) Chicken pox (~1975) Pneumonia (~1980) Ovarian torsion (~1995) Ovarian cyst Irregular menstrual cycle (~1984) History of menopause (~2012) Hemorrhoid (~1997) Gastric ulcer (~1988) Hip dysplasia (~1979) Osteoarthritis (~2009) History of melanoma (~2018) Family history of breast cancer Metatarsalgia, left foot Preventative health care Surgical History Anesthesia History of tonsillectomy and adenoidectomy (~1977) History of section (~1996) History of hip surgery (~2009) History of right knee surgery (~2019) Status post rotator cuff repair (~2016) History of oophorectomy Family History Father Alzheimer's disease History of bipolar disorder CLL (chronic lymphocytic leukemia) History of heart disease Hyperlipidemia Hypertension Mental health problem History of heart attack Mother Osteoarthritis Breast cancer History of heart disease Hyperlipidemia Grandfather Alcoholic Grandmother Stroke Dementia Grandfather Cirrhosis Alcoholic Grandmother Hypertension Stroke Family/Other Mental health problem Social History household members: spouse and family Tobacco & Substance Use Smoking Status: Never smoker alcohol intake: current substance use type: does not use Assessment & Plan Assessment and plan (1) Pyelonephritis: Problem details: 53 y/o F noted to have severe left flank pain in the setting of pyelonephritis and imaging noting severe left hydronephrosis and likely left UPJO. Discussed at length that this is a chronic condition and she is likely only suffering from severe pain at the moment secondary to her left pyelonephritis. Her renal function has otherwise remained stable, therefore, a cystoscopy with left ureteral stent insertion is not indicated at this time. She will benefit from possible NM Renal lasix scan as an outpatient to ensure the left kidney is not chronically obstructed (not absolutely necessary as her renal function is normal, her left renal parenchyma appears healthy and this is her first symptomatic episode). Otherwise, recommend pain control and antibiotic management with hospitalist team. Will reach out to our clinic schedulers to have her come in to clinic in the next 2-3 weeks. Status: Acute (2) Ureteropelvic junction obstruction: Status: Acute Plan: Please see above plan. Time-Based Coding :: [TOTAL MINUTES] spent with patient and on the chart (including review of chart, obtaining history, exam, reviewing outside data, placing orders, documenting exam and treatment plan, and counseling patient) on [DATE]. PROFEE Charge Codes Inpatient or Observation consultation: [id number]
== END 2024-02-15 13:35 | disposition home or self-care (01) | DRG 690 ==
LOC: ED 21:43 → AC 22:15
PROVIDERS: Emergency Medicine; Admitting Provider Internal Medicine; Emergency Provider Emergency Medicine; PCP Family Medicine; Referring Provider Emergency Medicine; Visit Provider Internal Medicine
DX: N13.6 Pyonephrosis (principal); E78.01 Familial hypercholesterolemia; B96.20 Unspecified Escherichia coli [E. coli] as the cause of diseases classified elsewhere; G43.909 Migraine, unspecified, not intractable, without status migrainosus
CPT/HCPCS: 36415; 74176; 80048; 81003; 81015; 85025; 87077; 87086; 87186; 96365; 96367; 96375; 96376; 99284; 99285; J0136; J0696; J0780; J1170; J1885; J2405

== ENCOUNTER → 2024-04-02 11:59 | Outpatient (CLI) | payer OTHER, SELFPAY ==
[2024-02-18 09:01] VITALS: BMI 23.1
--- NOTE | 2024-04-02 12:00 | DI.NM.S_ITS ---
PROCEDURE: NM RENAL FUNCTION W LASIX RADIOPHARMACEUTICAL: 9 mCi Tc-99m MAG3 IV and 40 mg furosemide IV. INDICATIONS: 53 y/o F w/ severe left hydronephrosis, concern for UPJO TECHNIQUE: The patient was hydrated orally before the examination was begun. After intravenous administration of Tc-99m MAG3, posterior abdominal radionuclide angiogram and sequential (1 minute each frame) renal images were obtained. A time-activity curve for each kidney was generated and analyzed. To evaluate for obstruction, the patient was given 40 mg furosemide via slow intravenous injection after the start of the examination. Sequential images were obtained for up to an additional 20 minutes. COMPARISON: [facility], CT, CT KIDNEY URETER BLADDER (KUB), 02/11/2024, 18:12. FINDINGS: Perfusion: There is normal vascular flow to both kidneys. Morphology: Both kidneys are normal in size and shape. Dilated collecting system on the left The ureters and bladder fill with tracer, and appear normal. Function: Both kidneys demonstrate normal cortical tracer uptake, with [id number] activity ranging from 3 to 5 minutes on the right and elevated time to peak of 15.5 minutes on the left. The right kidney contributes 82.4 % of total renal function. The left kidney contributes 17.6 % of total renal function. Lasix stimulation: After diuretic administration; The half-time of emptying of tracer activity from the right pelvicaliceal system is 15.8 minutes. The half-time of emptying from the left pelvicaliceal system was not obtained due to delayed excretion. Normal emptying half-times are less than 10 minutes; borderline ranges are from 10 to 20 minutes. IMPRESSION: 1. Redemonstration of left-sided hydronephrosis. 2. Right kidney contributes 82.4 percent of total renal function. 3. Borderline right renal tracer activity excretion after Lasix stimulation of 15.8 minutes. Unable to obtain half-time of on the left due to delayed uptake and excretion. Dictated by: Shan Edwards M.D. on 04/02/2024 at 15:31 Approved by: Shan Edwards M.D. on 04/02/2024 at 15:59
== END ==
LOC: NUCM 11:59
PROVIDERS: PCP Family Medicine; Referring Provider Urology; Visit Provider Urology
DX: N13.30 Unspecified hydronephrosis (principal)
CPT/HCPCS: 78708; A9562